=== PATIENT | male | born 1950 | race Caucasian/White ===

== ENCOUNTER 2020-04-09 23:55 | Emergency (ER) | payer MEDICARE, SELFPAY ==
[2020-04-09 23:56] VITALS: BP 138/75; PULSE 87; RESP 16; TEMP 37; O2SAT 98; BMI 24.3
[2020-04-10] VITALS (11 sets, daily range): BP systolic 105–148; BP diastolic 45–85; PULSE 60–88; RESP 16–20; TEMP 37.2; O2SAT 95–98; BMI 31.6
--- NOTE | 2020-04-10 00:19 | CT_ITS ---
PROCEDURE: CT ABDOMEN PELVIS WO CON CLINICAL INDICATION: right flank pain COMPARISON: No exams were available for comparison TECHNIQUE: Axial images obtained with sagittal and coronal reformats. All CT scans at the facility use one or more dose reduction, viz: automated exposure control, ma/kV adjustment per patient size (including targeted exams where dose is matched to indication, i.e. head), or iterative reconstruction technique. FINDINGS: Lung bases are unremarkable. Both adrenal glands are hypertrophic. The unenhanced liver,, pancreas, spleen, aorta, small and large bowel, area of the appendix, prostate, seminal vesicles, bladder, and the soft tissues are unremarkable. There is a remote fracture deformity of the superior left iliac crest.. The left kidney and ureter is unremarkable. There is dilatation of the right collecting system and ureter to the level of an L3 8.7 millimeter calculus with secondary moderate hydronephrosis. IMPRESSION: Obstructive 8.7 millimeter proximal right ureteral calculus with secondary hydronephrosis Dictated by: Carlton Lambert 04/10/2020 09:31 Electronically signed by Carlton Lambert in [facility] 04/10/2020 09:31
[2020-04-10 00:25] LABS: Basophils % 0.3 % (0.1-2.0); Eosinophils # 0.1 K/mm3 (0.0-0.4); Eosinophils % 0.8 % (0.1-12.0); Hematocrit 46.3 % (42.0-52.0); Hemoglobin 15.9 g/dL (14.1-18.0); Lymphocytes # 1.3 K/mm3 (0.7-4.5); Lymphocytes % 16.3 % (10-50); Mean Corpuscular HGB Conc 34.2 g/dL (31.8-35.4); Mean Corpuscular Hemoglobin 33.9 pg (27.0-31.2); Mean Corpuscular Volume 99.1 fl (80-94); Mean Platelet Volume 7.2 fl (7.4-10.4); Monocytes # 0.4 K/mm3 (0.1-1.0); Monocytes % 4.9 % (1.7-9.3); Neutrophils # 6.4 K/mm3 (1.8-7.8); Neutrophils % 77.7 % (37.0-80.0); Platelet Count 277 K/mm3 (142-424); Red Blood Count 4.67 M/mm3 (4.60-6.20); Red Cell Distribution Width 13.9 % (11.5-17.5); White Blood Count 8.3 K/mm3 (4.8-10.8)
[2020-04-10 00:29] LABS: Alanine Aminotransferase 70 U/L (12-78); Albumin Level 4.9 g/dl (3.5-5.0); Albumin/Globulin Ratio 1.7 (1.1-1.8); Alkaline Phosphatase 105 U/L (38-126); Anion Gap 12.6 mEq/L (5-15); Aspartate Amino Transferase 69 U/L (17-59); Bilirubin,Total 0.7 mg/dl (0.2-1.3); Blood Urea Nitrogen 23 mg/dl (9-20); Calcium 9.8 mg/dl (8.4-10.2); Carbon Dioxide 31 mmol/L (22.0-30.0); Chloride 96 mmol/L (98-107); Creatinine Clearance Estimated 64 mL/min (50-200); Estimated Glomerular Filt Rate 60 ml/min (>60); GFR (African American) 73 ML/MIN (>60); Globulin 2.9 g/dL (1.3-3.2); Glucose 133 mg/dl (74-100); Potassium 3.6 mmoL/L (3.5-5.1); Sodium 136 mmol/L (136-145); Total Protein,Serum 7.8 g/dl (6.3-8.2)
[2020-04-10 00:48] LABS: Microscopic, Urine URINE MICROSCOPIC (MICROSCOPIC)
[2020-04-10 00:49] LABS: Appearance,Urine CLEAR (Clear); Blood, Urine 3+ (Negative); Glucose,Urine (UA) Negative (Negative); Ketones,Urine 1+ (Negative); Leukocyte Esterase,Urine Negative (Negative); Nitrate,Urine Negative (Negative); PH,Urine 5.5 (5.0-8.5); Protein,Urine Negative (Negative); Specific Gravity, Urine 1.025 (1.005-1.030); Urobilinogen,Urine 0.2 EU/dl (0.2)
[2020-04-10 00:50] LABS: Bilirubin,Urine Negative (Negative); Color,Urine Dark Yellow (Yellow)
[2020-04-10 00:59] LABS: Bacteria,Urine 1+ /lpf; Mucus,Urine 1+ /lpf; RBC,Urine TNTC #/hpf (0-3)
--- NOTE | 2020-04-10 01:16 | PC.NURSE ---
paged Dr. Brown
--- NOTE | 2020-04-10 01:42 | PC.NURSE ---
calling st pratik jones md to speak with urology
--- NOTE | 2020-04-10 02:21 | PC.NURSE ---
on phone with dr solis at [facility]
--- NOTE | 2020-04-10 02:30 | HMH.EDGENADL ---
ED Disposition Clinical Impression: Nephrolithiasis Disposition: Xfer Short-Term Hosp Condition on Discharge: Good Instructions: DI for Acute Pain -- Adult Referrals: Damion Uriarte MD [Primary Care Provider] - - Critical Care Critical Care Time: No Attestation: On 04/09/20, the high probability of a clinically significant, sudden or life threatening deterioration of the following system(s) required my full and direct attention, intervention and personal management. The time I documented below is in addition to time spent performing reported procedures but includes the following listed in this critical care notation. Medical Decision Making - Medical Records Medical records reviewed: Yes: I reviewed the patient's medical records. - Taye Inquiry Pt receiving controlled substance: No Vital Signs: 04/09/20 23:56 04/10/20 00:56 04/10/20 02:30 Temperature 98.6 F Temperature Source Oral Pulse Rate [Left Radial] 87 70 68 Respiratory Rate 16 16 16 Blood Pressure [Right Arm] 138/75 148/83 H 141/72 H Blood Pressure Mean [Right Arm] 96 104 95 Blood Pressure Source [Right Arm] Automatic Cuff Automatic Cuff Automatic Cuff Blood Pressure Position [Right Arm] Sitting Sitting 02 Sat by Pulse Oximetry 98 96 97 Oxygen Delivery Method Room Air Room Air Room Air - Lab Data Lab results reviewed: Yes: I reviewed the patient's lab results. Lab Results 04/10/20 00:07: WBC 8.3, RBC 4.67, Hgb 15.9, Hct 46.3, MCV 99.1 H, MCH 33.9 H, MCHC 34.2, RDW 13.9, Plt Count 277, MPV 7.2 L, Neut % (Auto) 77.7, Lymph % (Auto) 16.3, [place] % (Auto) 4.9, Eos % (Auto) 0.8, Baso % (Auto) 0.3, Neut # (Auto) 6.4, Lymph # (Auto) 1.3, [place] # (Auto) 0.4, Eos # (Auto) 0.1, Baso # (Auto) 0.0 04/10/20 00:07: Sodium 136, Potassium 3.6, Chloride 96 L, Carbon Dioxide 31 H, Anion Gap 12.6, BUN 23 H, Creatinine 1.20, Estimated Creat Clear 64, Estimated GFR 60, Est GFR ( Amer) 73, Glucose 133 H, Calcium 9.8, Total Bilirubin 0.7, AST 69 H, ALT 70, Alkaline Phosphatase 105, Total Protein 7.8, Albumin 4.9, Globulin 2.9, Albumin/Globulin Ratio 1.7 04/10/20 00:42: Urine Color Dark yellow, Urine Appearance Clear, Urine pH 5.5, Ur Specific [place] 1.025, Urine Protein Negative, Urine Glucose (UA) Negative, Urine Ketones 1+, Urine Blood 3+, Urine Nitrate Negative, Urine Bilirubin Negative, Urine Urobilinogen 0.2, Ur Leukocyte Esterase Negative, Urine RBC Tntc, Urine WBC 3-5, Ur Squamous Epith Cells 3-5, Urine Bacteria 1+, Urine Mucus 1+ Result diagrams: 04/10/20 00:07 04/10/20 00:07 Orders (Tests/Meds): ED MEDICATIONS Generic Name Dose Route Start Last Admin Trade Name Rashid PRN Reason Stop Dose Admin Sodium Chloride 1,000 mls @ 999 mls/hr 04/10/20 00:30 04/10/20 00:26 Sod Chlor 0.9% 1000ml Bag IV 04/10/20 01:30 999 mls/hr .Q1H1M HEAVENLY Administration Sodium Chloride 1,000 mls @ 999 mls/hr 04/10/20 02:00 04/10/20 01:59 Sod Chlor 0.9% 1000ml Bag IV 04/10/20 03:00 999 mls/hr .Q1H1M HEAVENLY Administration Discontinued Medications Generic Name Dose Route Start Last Admin Trade Name Rashid PRN Reason Stop Dose Admin Amlodipine Besylate 10 mg 04/10/20 01:20 04/10/20 01:56 Norvasc 10mg Tablet PO 04/10/20 01:21 10 mg ONCE ONE Administration Hyoscyamine 0.25 mg 04/10/20 01:21 04/10/20 01:56 Levsin 0.125mg Tablet PO 04/10/20 01:22 0.25 mg ONCE ONE Administration Ketorolac Tromethamine 30 mg 04/10/20 00:18 04/10/20 00:25 Toradol 30mg/Ml Vial IV 04/10/20 00:19 30 mg ONCE ONE Administration Morphine Sulfate 4 mg 04/10/20 01:45 04/10/20 01:56 Morphine 4mg/Ml Syringe IV 04/10/20 01:46 4 mg ONCE ONE Administration Ondansetron HCl 4 mg 04/10/20 00:18 04/10/20 00:25 Zofran 4mg/2ml Vial IV 04/10/20 00:19 4 mg ONCE ONE Administration Tamsulosin HCl 0.8 mg 04/10/20 01:21 04/10/20 01:58 Flomax 0.4mg Capsule PO 04/10/20 01:22 0.4 mg ONCE ONE Administration ORDERS Category D
--- NOTE | 2020-04-10 03:01 | PC.NURSE ---
called lab to inform of covid test order.
--- NOTE | 2020-04-10 04:01 | PC.NURSE ---
this nurse spoke with kael duenas at [facility] who stated the pts bed assignment will be delayed until around shift change now. this nurse informed pt of delay. he asked this nurse to not call his to update her at the moment. he doesnt want to wake her up since he isnt going anywhere yet.
--- NOTE | 2020-04-10 04:43 | PC.NURSE ---
obtained bed from the floor for patient's comfort. pt repositioned and will offer breakfast at time.
--- NOTE | 2020-04-10 05:37 | PC.NURSE ---
spoke with pts daughter and updated her on pt condition and plan.
--- NOTE | 2020-04-10 06:19 | PC.NURSE ---
kael from [place]. called to check on pt. no update on a bed assignment at this time
--- NOTE | 2020-04-10 08:28 | PC.NURSE ---
SPOKE WITH [facility] PT IS GOING TO HAVE SURGERY THIS MORNING , FIXING TO CALL REPORT
--- NOTE | 2020-04-10 08:40 | PC.NURSE ---
Attempted to give report to [facility], stated to call back in 30 mins for report that they were not ready to take it yet.
--- NOTE | 2020-04-10 09:24 | PC.NURSE ---
Approval obtained from GALO Major, CNO for patient to have in-house COVID-19 testing prior to transfer.
[2020-04-10 09:39] LABS: Adenovirus,PCR Not Detected (NotDetected); Bordetella Pertussis Not Detected (NotDetected); Chlamydophila Pneumoniae, PCR Not Detected (NotDetected); Coronavirus 19, PCR Not Detected (NotDetected); Coronavirus 229E Not Detected (NotDetected); Coronavirus NL63 Not Detected (NotDetected); Coronavirus OC43 Not Detected (NotDetected); Coronovirus HKU1,PCR Not Detected (NotDetected); Human Metapneumovirus Not Detected (NotDetected); Influenza A, PCR Not Detected (NotDetected); Influenza AH1, 2009 Not Detected (NotDetected); Influenza AH1, PCR Not Detected (NotDetected); Influenza AH3,PCR Not Detected (NotDetected); Influenza B, PCR Not Detected (NotDetected); Mycoplasma Pneumoniae, PCR Not Detected (NotDected); Parainfluenza 1, PCR Not Detected (NotDetected); Parainfluenza 2, PCR Not Detected (NotDetected); Parainfluenza 3, PCR Not Detected (NotDetected); Parainfluenza 4, PCR Not Detected (NotDetected); Respiratory Syncytial Virus Not Detected (NotDetected); Rhinovirus/Enterovirus Not Detected (NotDetected)
[2020-04-11 15:13] LABS: Covid-19 Nasal PCR Sendout Lex NOT DETECTED
== END 2020-04-10 10:08 | disposition short-term general hospital (02) ==
PROVIDERS: Emergency Provider Family Medicine; PCP Family Medicine
DX: N20.0 Calculus of kidney (principal); F41.8 Other specified anxiety disorders; F17.210 Nicotine dependence, cigarettes, uncomplicated
CPT/HCPCS: 74176; 80053; 81001; 85025; 87581; 87633; 87798; 96365; 96367; 96375; 99285; J2405; U0004

== ENCOUNTER 2023-10-17 13:47 | Emergency (ER) | payer MEDICARE, SELFPAY ==
[2023-10-17 13:48] VITALS: BP 147/73; PULSE 86; RESP 18; TEMP 36.9; O2SAT 97; BMI 22.5
--- NOTE | 2023-10-17 13:59 | XR_ITS ---
PROCEDURE INFORMATION: Exam: XR Chest Exam date and time: 10/17/2023 2:23 PM Age: 73 years old Clinical indication: Smoker's cough; Additional info: Cough 1-2 weeks TECHNIQUE: Imaging protocol: Radiologic exam of the chest. Views: 2 views. COMPARISON: CT ABDOMEN PELVIS WO CON 04/10/2020 12:34 AM FINDINGS: Lungs: Large right upper lobe lung mass with adjacent consolidation highly concerning for bronchogenic malignancy for which follow-up CT chest recommended for further assessment. Pleural spaces: Unremarkable. No pleural effusion. No pneumothorax. Heart/Mediastinum: Unremarkable. No cardiomegaly. Bones/joints: Unremarkable for age. IMPRESSION: Large right upper lobe lung mass with adjacent consolidation that may be secondary to postobstructive atelectasis for which follow-up CT chest with contrast recommended for further assessment.
[2023-10-17 14:00] VITALS: BP 119/65; PULSE 80; RESP 18; O2SAT 96
[2023-10-17 14:30] VITALS: BP 107/63; PULSE 82; RESP 18; O2SAT 96
[2023-10-17] MEDS: DEXAMETHASONE 4MG TABLET 10 MG PO (14:50)
[2023-10-17 15:00] VITALS: BP 115/67; PULSE 77; RESP 18; O2SAT 96
--- NOTE | 2023-10-17 15:13 | ED_ITS ---
Discharge Plan Disposition Patient Disposition: Home, Self-Care Prescriptions Prescriptions: New cefdinir 300 mg capsule 300 mg PO BID 10 Days Qty: 20 0RF No Action sertraline 100 MG tablet 100 mg PO DAILY tamsulosin 0.4 MG capsule 0.4 mg PO DAILY finasteride 5 MG tablet 5 mg PO DAILY diazepam 5 MG tablet 5 mg PO TID rosuvastatin 10 MG tablet 10 mg PO 10 hydrocodone-acetaminophen 1 EACH tablet 1 each PO NEEDED PRN (Reason: back pain) Referrals Follow up/Referrals: Vicente Mas DO [Primary Care Provider] - See instructions Activity Restrictions/Add. Instructions Additional Instructions/Restrictions: Follow-up with your family doctor regarding this visit to the emergency department. Take antibiotic twice daily for 10 days. Be sure to talk to your family doctor about pneumonia and concern for possible mass causing the pneumonia. Call your family doctor to establish care for this visit to the emergency department and schedule follow-up within 48 hours to ensure improvement. If you have any worsening of your condition or any other concerning signs or symptoms, return to the emergency department or your primary care doctor for further evaluation. Clinical Impressions Clinical Impression: Lung mass Pneumonia Qualifiers: Pneumonia type: due to unspecified organism Laterality: right Lung location: upper lobe of lung Qualified Code(s): J18.9 - Pneumonia, unspecified organism Discharge ED Provider: Kimani Hunter General Adult HPI General Chief complaint: Upper Respiratory Infection Stated complaint: cough, congestion, pain in right lung area Time Seen by Provider: 10/17/23 14:06 Mode of Arrival: Ambulatory Limitations: No Limitations Description of Symptoms (Recalled from ER Triage Doc. by RN): PT REPORTS COUGH AND CONGESTION X 1-2 WEEKS. STATES I THINK I HAVE PNEUMONIA History of Present Illness HPI narrative: 73-year-old with significant medical history for [id number] smoking presenting with cough and generalized weakness. He thinks he has pneumonia after searching his symptoms online. Cough is rattling, but not productive of any sputum. Has been having symptoms of cough and congestion for about 2 weeks at this point and states that he is feeling like he is getting worse now. Has not taken anything for the symptoms Related Data Home Medications Medication Instructions Recorded Confirmed diazepam 5 mg tablet 5 mg PO TID Anxiety 04/10/20 04/10/20 finasteride 5 mg tablet 5 mg PO DAILY hyperlipidemia 04/10/20 04/10/20 hydrocodone 5 mg-acetaminophen 325 1 each PO NEEDED PRN back pain 04/10/20 04/10/20 mg tablet rosuvastatin 10 mg tablet 10 mg PO 10 hyperlipidemia 04/10/20 04/10/20 sertraline 100 mg tablet 100 mg PO DAILY depression 04/10/20 04/10/20 tamsulosin 0.4 mg capsule 0.4 mg PO DAILY prostate 04/10/20 04/10/20 Previous Rx's Medication Instructions Recorded cefdinir 300 mg capsule 300 mg PO BID 10 days #20 caps 10/17/23 Allergies Allergy/AdvReac Type Severity Reaction Status Date / Time YELLOW PAIN PILL (UNSURE Allergy Mild Uncoded 10/04/17 14:22 NAME) [facility] Disclaimer: The information contained in this section may have been updated after the patient was seen, as this information can be updated by other users. Social History Smoking Status: Current every day smoker alcohol intake: never current occupational status: retired Travel in the last 8 weeks: None ROS Obtained: Yes All systems reviewed & no additional complaints except as documented Physical Exam General General appearance: alert and in no apparent distress Head Head exam: atraumatic and normocephalic Eye Eye exam: Present normal appearance, PERRL and EOMI ENT ENT exam: Present mucous membranes moist Neck Neck exam: Present normal inspection, full ROM and trachea midline Respiratory Respiratory exam: Absent respiratory distress, wheezes, stridor, accessory muscle use or prolonged expiratory phase Cardiovascular Cardiovascular exam: Present normal rhythm Abdominal Exam Abdominal exam: Present soft; Absent distention, tenderness, guarding, rebound or rigidity Extremities Exam Extremities exam: Absent edema Neurological Exam Neurological exam: Present alert, oriented X3, CN II-XII intact and normal gait; Absent motor sensory deficit Skin Skin exam: Present warm and dry; Absent diaphoresis or erythema Medical Decision Making Medical Records Medical records reviewed: Yes I reviewed the patient's medical records. Taye Inquiry Pt receiving controlled substance: No Taye was queried for this patient: No Vital Signs: 10/17/23 13:48 10/17/23 14:00 10/17/23 14:30 Temperature 98.4 F Temperature Source Oral Pulse Rate 80 82 Pulse Rate [Radial] 86 Respiratory Rate 18 18 18 Blood Pressure 119/65 107/63 L Blood Pressure [Right Arm] 147/73 H Blood Pressure Mean 83 78 Blood Pressure Mean [Right Arm] 97 Blood Pressure Source [Right Arm] Automatic Cuff Blood Pressure Position [Right Arm] Sitting 02 Sat by Pulse Oximetry 97 96 96 Oxygen Delivery Method Room Air 10/17/23 15:00 Temperature Temperature Source Pulse Rate 77 Pulse Rate [Radial] Respiratory Rate 18 Blood Pressure 115/67 Blood Pressure [Right Arm] Blood Pressure Mean 83 Blood Pressure Mean [Right Arm] Blood Pressure Source [Right Arm] Blood Pressure Position [Right Arm] 02 Sat by Pulse Oximetry 96 Oxygen Delivery Method Orders (Tests/Meds): ED MEDICATIONS Generic Name Dose Route Start Last Admin Trade Name Freq PRN Reason Stop Dose Admin Cefdinir 300 mg 10/17/23 15:44 Cefdinir 300mg Capsule PO 10/17/23 15:45 ONCE ONE Discontinued Medications Generic Name Dose Route Start Last Admin Trade Name Freq PRN Reason Stop Dose Admin Dexamethasone 10 mg 10/17/23 14:31 10/17/23 14:50 Dexamethasone 4mg Tablet PO 10/17/23 14:32 10 mg ONCE ONE Administration ORDERS Category Date Time Status CXR 2 view (NOT portable) [XR chest 2V] Stat Exams 10/17/23 13:59 Completed Medical Decision Narrative: 73-year-old with significant medical history for [id number] smoking presenting with cough and generalized weakness. He thinks he has pneumonia after searching his symptoms online. Cough is rattling, but not productive of any sputum, but he did produce a small penny of blood today, 10/17. No fevers or chills or any other sick symptoms. Has been having symptoms of cough and congestion for about 2 weeks at this point and states that he is feeling like he is getting worse now. Has not taken anything for the symptom. To be noted that patient still currently continues to smoke which complicates care and current health status. History was obtained via conversation with patient. On arrival, patient hemodynamically stable, alert, oriented x4, appropriate, GCS 15, moving all extremities spontaneously, pupils equal and reactive to light. Full physical exam performed and significant for lungs clear to auscultation bilaterally, but patient is intermittently coughing and is nonproductive. Cardiac exam within normal limits. Differential includes bronchitis, pneumonia, malignancy, pneumothorax, among others. Patient was given Decadron p.o. for symptomatic management and correction of underlying abnormalities. Chest x-ray ordered. Patient has dense consolidation of right upper lobe. He was given Augmentin. No evidence of midline shift. Appears to be related to a neighboring mass. On reevaluation, patient resting comfortably bed. This most likely represents pneumonia. Could represent mucous plugging given large, dense consolidation and acuity of symptoms, but antibiotics administered here and because patient saturating appropriately, nontachypneic, nontachycardic, normotensive was deemed appropriate for outpatient management. Because patient at baseline without signs or symptoms of clinical decompensation, deemed appropriate for discharge. Results were relayed to patient and family who voiced understanding and were agreeable to outpatient management and follow up. At the time of discharge the patient was hemodynamically stable, tolerating PO, and mobilizing appropriately. Return precautions given Critical Care Critical Care Time Critical Care Time: No
[2023-10-17] MEDS: CEFDINIR 300MG CAPSULE 300 MG PO (15:57)
[2023-10-17 16:01] VITALS: BP 129/78; PULSE 81; RESP 20; TEMP 36.9; O2SAT 97
== END 2023-10-17 16:03 | disposition home or self-care (01) ==
PROVIDERS: Emergency Provider Emergency Medicine; PCP Internal Medicine
DX: J18.9 Pneumonia, unspecified organism (principal); R53.1 Weakness; F17.210 Nicotine dependence, cigarettes, uncomplicated
CPT/HCPCS: 71046; 99283

== ENCOUNTER 2023-11-27 15:19 | Emergency (ER) | payer MEDICARE, SELFPAY ==
[2023-11-27] VITALS (8 sets, daily range): BP systolic 128–159; BP diastolic 66–88; PULSE 78–91; RESP 18–20; TEMP 36.9; O2SAT 94–97; BMI 22.9
--- NOTE | 2023-11-27 15:49 | ED_ITS ---
Discharge Plan Disposition Patient Disposition: Home, Self-Care Condition: Fair Prescriptions Prescriptions: New oxycodone 5 mg tablet 5 mg PO Q8H PRN (Reason: severe pain (scale score 7-10)) Qty: 12 0RF No Action sertraline 100 MG tablet 100 mg PO DAILY tamsulosin 0.4 MG capsule 0.4 mg PO DAILY finasteride 5 MG tablet 5 mg PO DAILY diazepam 5 MG tablet 5 mg PO TID rosuvastatin 10 MG tablet 10 mg PO 10 hydrocodone-acetaminophen 1 EACH tablet 1 each PO NEEDED PRN (Reason: back pain) cefdinir 300 mg capsule 300 mg PO BID 10 Days Qty: 20 0RF Referrals Follow up/Referrals: Vicente Mas DO [Primary Care Provider] - See instructions Dell Villarreal MD [Staff Physician] - See instructions (Patient has a right u pper lobe mass with right upper lobe bronchus and mass effect on the right pulmonary artery) Activity Restrictions/Add. Instructions Additional Instructions/Restrictions: Patient to call and make appointments with Dr. Villarreal of hematology oncology tomorrow. Patient personally notified that he likely has a malignant lung mass that needs further evaluation. Please take your medications as prescribed Clinical Impressions Clinical Impression: Lung mass Discharge ED Provider: Rigoberto Moody General Adult HPI <ARABELLA Romo - Last Filed: 11/27/23 18:12> General Chief complaint: Shortness of Breath/Dyspnea Stated complaint: SOA, wheezing ,weak Time Seen by Provider: 11/27/23 15:49 Mode of Arrival: Ambulatory Source of Information: Patient Limitations: No Limitations Description of Symptoms (Recalled from ER Triage Doc. by RN): Patient reports he was diagnosed with pneumonia 1 month ago and completed course of antibiotics felt better for a little bit but started feeling bad a week ago with cough, shortness of breath, ear pain and headache. History of Present Illness HPI narrative: Patient presents for evaluation initially of pneumonia . Patient has past medical history of ongoing tobaccoism of approximately 1 pack/day. Patient was seen in October 17, 2023 and diagnosed with a right middle lobe pneumonia. He was prescribed antibiotics and steroids and discharged home. Patient reports only minimal improvement and returns with a 2-week history of worsening right- sided chest pain when lying on his right side, shortness of breath and nonproductive cough. He denies fever chills hemoptysis hematochezia melena n ausea vomiting diarrhea.Patient is on no controlled substances currently. Patient has been on diazepam in the past but has since self DC'd over a year ago. Patient denies unintentional weight loss, night sweats. Related Data Home Medications Medication Instructions Recorded Confirmed diazepam 5 mg tablet 5 mg PO TID Anxiety 04/10/20 04/10/20 finasteride 5 mg tablet 5 mg PO DAILY hyperlipidemia 04/10/20 04/10/20 hydrocodone 5 mg-acetaminophen 325 1 each PO NEEDED PRN back pain 04/10/20 04/10/20 mg tablet rosuvastatin 10 mg tablet 10 mg PO 10 hyperlipidemia 04/10/20 04/10/20 sertraline 100 mg tablet 100 mg PO DAILY depression 04/10/20 04/10/20 tamsulosin 0.4 mg capsule 0.4 mg PO DAILY prostate 04/10/20 04/10/20 Previous Rx's Medication Instructions Recorded cefdinir 300 mg capsule 300 mg PO BID 10 days #20 caps 10/17/23 oxycodone 5 mg tablet 5 mg PO Q8H PRN severe pain (scale 11/27/23 score 7-10) #12 tabs Allergies Allergy/AdvReac Type Severity Reaction Status Date / Time YELLOW PAIN PILL (UNSURE Allergy Mild Uncoded 10/04/17 14:22 NAME) [facility] <ARABELLA Romo - Last Filed: 11/27/23 18:12> [facility] Disclaimer: The information contained in this section may have been updated after the patient was seen, as this information can be updated by other users. Social History Smoking Status: Current every day smoker alcohol intake: never current occupational status: retired Travel in the last 8 weeks: None <ARABELLA Romo - Last Filed: 11/27/23 18:12> ROS Obtained: Yes Systems reviewed as appropriate & no additional complaints except as documented Physical Exam <ARABELLA Romo - Last Filed: 11/27/23 18:12> Narrative Physical exam: Patient is a well-nourished well-developed 73-year-old gentleman who otherwise is in no acute distress. General General appearance: alert and in no apparent distress Head Head exam: atraumatic and normal inspection Eye Eye exam: Present normal appearance, EOMI and other (Bilateral pinpoint pupils) ENT ENT exam: Present normal exam, normal oropharynx and mucous membranes moist Neck Neck exam: Present normal inspection, full ROM and trachea midline; Absent lymphadenopathy Chest Chest inspection: Present normal inspection and symmetric chest wall rise Respiratory Respiratory exam: Present other (Patient has inspiratory and expiratory rhonchi primarily in the right middle lobe. Air entry in the right middle lobe is diminished. The remainder of the lung lindesy are clear to auscultation); Absent accessory muscle use Cardiovascular Cardiovascular exam: Present regular rate, normal rhythm, normal heart sounds, +S1 and +S2 Abdominal Exam Abdominal exam: Present soft and normal bowel sounds; Absent tenderness, guarding or rebound Extremities Exam Extremities exam: Present normal inspection and full ROM Neurological Exam Neurological exam: Present alert, oriented X3 and CN II-XII intact Psychiatric Psychiatric exam: Present normal affect and normal mood Skin Skin exam: Present warm, dry and normal color Lymphatic Lymphatic Findings: no adenopathy Medical Decision Making <ARABELLA Romo - Last Filed: 11/27/23 18:12> Medical Records Medical records reviewed: Yes I reviewed the patient's medical records. Taye Inquiry Pt receiving controlled substance: No Vital Signs: 11/27/23 15:20 11/27/23 15:30 11/27/23 16:00 Temperature 98.5 F Temperature Source Oral Pulse Rate 83 80 Pulse Rate [Right] 89 Respiratory Rate 20 Blood Pressure 141/68 H 142/67 H Blood Pressure [Right Arm] 159/78 H Blood Pressure Mean [Right Arm] 105 Blood Pressure Source [Right Arm] Automatic Cuff 02 Sat by Pulse Oximetry 96 96 94 L Oxygen Delivery Method Room Air Room Air Room Air 11/27/23 16:30 11/27/23 17:00 11/27/23 17:30 Temperature Temperature Source Pulse Rate 85 78 91 H Pulse Rate [Right] Respiratory Rate Blood Pressure 141/71 H 131/66 148/85 H Blood Pressure [Right Arm] Blood Pressure Mean [Right Arm] Blood Pressure Source [Right Arm] 02 Sat by Pulse Oximetry 97 94 L 95 Oxygen Delivery Method Room Air Room Air Room Air 11/27/23 18:00 Temperature Temperature Source Pulse Rate 85 Pulse Rate [Right] Respiratory Rate Blood Pressure 128/75 Blood Pressure [Right Arm] Blood Pressure Mean [Right Arm] Blood Pressure Source [Right Arm] 02 Sat by Pulse Oximetry 95 Oxygen Delivery Method Room Air Lab Data Lab results reviewed: Yes I reviewed the patient's lab results. Lab Results 11/27/23 16:10: SARS-CoV-2 (PCR) Not detected, Influenza A Untype (PCR) Not detected, Influenza Type B (PCR) Not detected 11/27/23 16:30: WBC 8.3, RBC 4.58 L, Hgb 12.6 L, Hct 40.5 L, MCV 88.4, MCH 27.5, MCHC 31.2 L, RDW 17.2, Plt Count 497 H, MPV 7.6, Neut % (Auto) 81.3 H, Lymph % (Auto) 12.2, Ada % (Auto) 5.4, Eos % (Auto) 0.9, Baso % (Auto) 0.2, Neut # (Auto) 6.7, Lymph # (Auto) 1.0, Ada # (Auto) 0.5, Eos # (Auto) 0.1, Baso # (Auto) 0.0, Sodium 140, Potassium 3.6, Chloride 105, Carbon Dioxide 29, Anion Gap 9.6, BUN 13, Creatinine 1.00, Estimated Creat Clear 69, Estimated GFR 73, Est GFR ( Amer) 89, Glucose 103 H, Calcium 9.1, Total Bilirubin 0.3, AST 33, ALT 21, Alkaline Phosphatase 169 H, Troponin I < 0.01, Total Protein 7.8, Albumin 4.1, Globulin 3.7 H, Albumin/Globulin Ratio 1.1 11/27/23 16:30 11/27/23 16:30 Orders (Tests/Meds): ED MEDICATIONS Generic Name Dose Route Start Last Admin Trade Name Freq PRN Reason Stop Dose Admin Ceftriaxone Sodium 1 gm/ 50 mls @ 100 mls/hr 11/27/23 17:00 11/27/23 17:51 Sodium Chloride IV 12/07/23 16:59 100 mls/hr Q24H HEAVENLY Administration Azithromycin 500 mg/ Sodium 250 mls @ 250 mls/hr 11/27/23 17:00 11/27/23 18:12 Chloride IV 12/07/23 16:59 Not Given Q24H HEAVENLY Oxycodone HCl 5 mg 11/27/23 18:11 Oxycodone 5mg Immediate Release Tablet PO 12/27/23 18:10 Q4HP PRN Severe Pain (7-10) Discontinued Medications Generic Name Dose Route Start Last Admin Trade Name Rashid PRN Reason Stop Dose Admin Acetaminophen 1,000 mg 11/27/23 16:47 11/27/23 17:22 Acetaminophen 1,000mg/100ml Vial IV 11/27/23 16:48 1,000 mg ONCE ONE Administration Iopamidol 80 ml 11/27/23 17:17 11/27/23 17:18 Iopamidol-370 (76%);100ml Bottle IV 11/27/23 17:18 80 ml ONCE ONE Administration Morphine Sulfate 4 mg 11/27/23 16:47 11/27/23 17:22 Morphine 4mg/Ml Syringe IV 11/27/23 16:48 4 mg ONCE ONE Administration Ondansetron HCl 4 mg 11/27/23 17:23 11/27/23 17:26 Ondansetron 4mg/2ml Vial IV 11/27/23 17:24 4 mg ONCE ONE Administration Sodium Chloride 10 ml 11/27/23 17:17 11/27/23 17:18 Sodium Chloride 0.9% 10ml Syr (Rad Only) IV 11/27/23 17:18 10 ml ONCE ONE Administration Sodium Chloride 50 ml 11/27/23 17:17 11/27/23 17:18 0.9 % Sodium Chloride 50 Ml Vial IV 11/27/23 17:18 50 ml ONCE ONE Administration ORDERS Category Date Time Status CT angio chest PE protocol Stat Cat Scan 11/27/23 16:[address] head/brain wo con Stat Cat Scan 11/27/23 16:47 Completed Chest XR -- portable [XR chest portable] Stat Exams 11/27/23 15:59 Completed CBC w/Auto Diff [Complete Blood Count Auto Diff] Stat Lab 11/27/23 16:30 Completed CMP [Comprehensive Metabolic Panel] Stat Lab 11/27/23 16:30 Completed Rapid PCR Covid and Flu A/B Stat Lab 11/27/23 16:10 Completed Trop I [Troponin I] Stat Lab 11/27/23 16:30 Completed EKG Request [ECG Request] Stat Y 11/27/23 16:17 Ordered Medical Decision Narrative: In summary patient is a 73-year-old male who presents to the emergency department for evaluation of initially cough and right-sided chest pain. Patient is hemodynamically stable upon arrival, and afebrile. Physical exam shows diminished breath sounds with rhonchorous breath sounds in the right middle lobe lindsey additionally pupillary exam shows pinpoint pupils bilaterally. Differential diagnosis includes right middle lobe pneumonia versus malignant neoplastic disease. Initial workup will be conducted with hematologic labs plain film chest x-ray CTA PE protocol CT of the head respiratory swabs. Initial interventions include acetaminophen and opiate analgesia. Initial workup reviewed by me shows a normal white count with no left shift and CMP significant for elevated alk phos manage laboratory vesication's are nonactionable. Mild unofficial interpretation of CT scan head without contrast shows no evidence of mass. My unofficial interpretation of the CTA PE protocol shows an obstructing mass in the right middle lobe along with likely tree-in-bud in the anterior right lower lobe along with nodular changes in the upper and lower lobes. No definitive mass noted although it is possible that the entire right middle lobe could be either postobstructive or mass. Comparison from plain film chest x-ray done in October of this year shows continued prominence of opacification of the right middle lobe along with slightly worsening peripheral surrounding disease. Discussed patient management with pulmonology on-call. Upon repeat evaluation had resolution of headache but was not breathing any better or worse. Given this patient is appropriate for discharge home with instructions to contact the hematology oncology clinic tomorrow for appointment <Rigoberto Moody MD - Last Filed: 11/27/23 18:18> Vital Signs: 11/27/23 15:20 11/27/23 15:30 11/27/23 16:00 Temperature 98.5 F Temperature Source Oral Pulse Rate 83 80 Pulse Rate [Right] 89 Respiratory Rate 20 Blood Pressure 141/68 H 142/67 H Blood Pressure [Right Arm] 159/78 H Blood Pressure Mean [Right Arm] 105 Blood Pressure Source [Right Arm] Automatic Cuff 02 Sat by Pulse Oximetry 96 96 94 L Oxygen Delivery Method Room Air Room Air Room Air 11/27/23 16:30 11/27/23 17:00 11/27/23 17:30 Temperature Temperature Source Pulse Rate 85 78 91 H Pulse Rate [Right] Respiratory Rate Blood Pressure 141/71 H 131/66 148/85 H Blood Pressure [Right Arm] Blood Pressure Mean [Right Arm] Blood Pressure Source [Right Arm] 02 Sat by Pulse Oximetry 97 94 L 95 Oxygen Delivery Method Room Air Room Air Room Air 11/27/23 18:00 Temperature Temperature Source Pulse Rate 85 Pulse Rate [Right] Respiratory Rate Blood Pressure 128/75 Blood Pressure [Right Arm] Blood Pressure Mean [Right Arm] Blood Pressure Source [Right Arm] 02 Sat by Pulse Oximetry 95 Oxygen Delivery Method Room Air Lab Data Lab Results 11/27/23 16:10: SARS-CoV-2 (PCR) Not detected, Influenza A Untype (PCR) Not detected, Influenza Type B (PCR) Not detected 11/27/23 16:30: WBC 8.3, RBC 4.58 L, Hgb 12.6 L, Hct 40.5 L, MCV 88.4, MCH 27.5, MCHC 31.2 L, RDW 17.2, Plt Count 497 H, MPV 7.6, Neut % (Auto) 81.3 H, Lymph % (Auto) 12.2, Ada % (Auto) 5.4, Eos % (Auto) 0.9, Baso % (Auto) 0.2, Neut # (Auto) 6.7, Lymph # (Auto) 1.0, Ada # (Auto) 0.5, Eos # (Auto) 0.1, Baso # (Auto) 0.0, Sodium 140, Potassium 3.6, Chloride 105, Carbon Dioxide 29, Anion Gap 9.6, BUN 13, Creatinine 1.00, Estimated Creat Clear 69, Estimated GFR 73, Est GFR ( Amer) 89, Glucose 103 H, Calcium 9.1, Total Bilirubin 0.3, AST 33, ALT 21, Alkaline Phosphatase 169 H, Troponin I < 0.01, Total Protein 7.8, Albumin 4.1, Globulin 3.7 H, Albumin/Globulin Ratio 1.1 Orders (Tests/Meds): ED MEDICATIONS Generic Name Dose Route Start Last Admin Trade Name Freq PRN Reason Stop Dose Admin Ceftriaxone Sodium 1 gm/ 50 mls @ 100 mls/hr 11/27/23 17:00 11/27/23 17:51 Sodium Chloride IV 12/07/23 16:59 100 mls/hr Q24H HEAVENLY Administration Azithromycin 500 mg/ Sodium 250 mls @ 250 mls/hr 11/27/23 17:00 11/27/23 18:12 Chloride IV 12/07/23 16:59 Not Given Q24H HEAVENLY Oxycodone HCl 5 mg 11/27/23 18:11 Oxycodone 5mg Immediate Release Tablet PO 12/27/23 18:10 Q4HP PRN Severe Pain (7-10) Discontinued Medications Generic Name Dose Route Start Last Admin Trade Name Rashid PRN Reason Stop Dose Admin Acetaminophen 1,000 mg 11/27/23 16:47 11/27/23 17:22 Acetaminophen 1,000mg/100ml Vial IV 11/27/23 16:48 1,000 mg ONCE ONE Administration Iopamidol 80 ml 11/27/23 17:17 11/27/23 17:18 Iopamidol-370 (76%);100ml Bottle IV 11/27/23 17:18 80 ml ONCE ONE Administration Morphine Sulfate 4 mg 11/27/23 16:47 11/27/23 17:22 Morphine 4mg/Ml Syringe IV 11/27/23 16:48 4 mg ONCE ONE Administration Ondansetron HCl 4 mg 11/27/23 17:23 11/27/23 17:26 Ondansetron 4mg/2ml Vial IV 11/27/23 17:24 4 mg ONCE ONE Administration Sodium Chloride 10 ml 11/27/23 17:17 11/27/23 17:18 Sodium Chloride 0.9% 10ml Syr (Rad Only) IV 11/27/23 17:18 10 ml ONCE ONE Administration Sodium Chloride 50 ml 11/27/23 17:17 11/27/23 17:18 0.9 % Sodium Chloride 50 Ml Vial IV 11/27/23 17:18 50 ml ONCE ONE Administration ORDERS Category Date Time Status CT angio chest PE protocol Stat Cat Scan 11/27/23 16:[address] head/brain wo con Stat Cat Scan 11/27/23 16:47 Completed Chest XR -- portable [XR chest portable] Stat Exams 11/27/23 15:59 Completed CBC w/Auto Diff [Complete Blood Count Auto Diff] Stat Lab 11/27/23 16:30 Completed CMP [Comprehensive Metabolic Panel] Stat Lab 11/27/23 16:30 Completed Rapid PCR Covid and Flu A/B Stat Lab 11/27/23 16:10 Completed Trop I [Troponin I] Stat Lab 11/27/23 16:30 Completed EKG Request [ECG Request] Stat Y 11/27/23 16:17 Ordered ECG Data Tracing #1: Independently interpreted by me, rate is 82, rhythm is regular, no ST elevation in anatomical contiguous leads, QTc 399 Medical Decision Narrative: In summary patient is a 73-year-old male who presents to the emergency department for evaluation of initially cough and right-sided chest pain. Patient is hemodynamically stable upon arrival, and afebrile. Physical exam shows diminished breath sounds with rhonchorous breath sounds in the right middle lobe lindsey additionally pupillary exam shows pinpoint pupils bilaterally. Differential diagnosis includes right middle lobe pneumonia versus malignant neoplastic disease. Initial workup will be conducted with hematologic labs plain film chest x-ray CTA PE protocol CT of the head respiratory swabs. Initial interventions include acetaminophen and opiate analgesia. Initial workup reviewed by me shows a normal white count with no left shift and CMP significant for elevated alk phos manage laboratory vesication's are nonactionable. Mild unofficial interpretation of CT scan head without contrast shows no evidence of mass. My unofficial interpretation of the CTA PE protocol shows an obstructing mass in the right middle lobe along with likely tree-in-bud in the anterior right lower lobe along with nodular changes in the upper and lower lobes. No definitive mass noted although it is possible that the entire right middle lobe could be either postobstructive or mass. Comparison from plain film chest x-ray done in October of this year shows continued prominence of opacification of the right middle lobe along with slightly worsening peripheral surrounding disease. Discussed patient management with pulmonology on-call. Upon repeat evaluation had resolution of headache but was not breathing any better or worse. Given this patient is appropriate for discharge home with instructions to contact the hematology oncology clinic tomorrow for appointment. I was consulted by the ANNE, and we discussed the complexity of the problems being addressed. I approved the treatment and management plan for this patient's care in the emergency department, thus performing a substantive portion of the medical decision making. Rigoberto Moody MD Critical Care <ARABELLA Romo - Last Filed: 11/27/23 18:12> Critical Care Time Critical Care Time: No
--- NOTE | 2023-11-27 15:59 | XR_ITS ---
PROCEDURE INFORMATION: Exam: XR Chest Exam date and time: 11/27/2023 4:02 PM Age: 73 years old Clinical indication: Cough; Patient HX: Patient state's he has pneumonia. ; Additional info: Cough wheezing TECHNIQUE: Imaging protocol: Radiologic exam of the chest. Views: 1 view. COMPARISON: CR XR CHEST 2V 10/17/2023 2:23 PM FINDINGS: Lungs: Unchanged right mid to upper lung field mass measuring 11.9 cm transverse by 13.8 cm craniocaudad. Pleural spaces: Unremarkable. No pleural effusion. No pneumothorax. Heart/Mediastinum: No cardiomegaly. Bones/joints: Unremarkable. IMPRESSION: Unchanged right mid to upper lung field mass measuring 11.9 cm transverse by 13.8 cm craniocaudad. Malignancy until proven otherwise. CT with contrast recommended for further evaluation.
--- NOTE | 2023-11-27 16:07 | PC.NURSE ---
RAD at [facility]
[2023-11-27 16:12] LABS: Coronavirus 19, PCR Not Detected (NotDetected); Influenza A, PCR Not Detected (NotDetected); Influenza B, PCR Not Detected (NotDetected)
--- NOTE | 2023-11-27 16:17 | CT_ITS ---
PROCEDURE INFORMATION: Exam: CTA Chest With Contrast Exam date and time: 11/27/2023 5:14 PM Age: 73 years old Clinical indication: Cough and shortness of breath; Additional info: Right middle lobe pneumonia TECHNIQUE: Imaging protocol: Computed tomographic angiography of the chest with contrast. Exam focused on the arteries. 3D rendering (Not supervised by radiologist): MIP and/or 3D reconstructed images were created by the technologist. Radiation optimization: All CT scans at this facility use at least one of these dose optimization techniques: automated exposure control; mA and/or kV adjustment per patient size (includes targeted exams where dose is matched to clinical indication); or iterative reconstruction. Contrast material: ISOVUE; Contrast volume: 80 ml; Contrast route: INTRAVENOUS (IV); COMPARISON: CR XR CHEST PORTABLE 11/27/2023 4:02 PM FINDINGS: Pulmonary arteries: See Lungs finding. No definite pulmonary emboli. Aorta: The aorta demonstrates mild atherosclerotic calcification. No aneurysm or dissection. Thyroid: The visualized thyroid gland is normal. Lungs: There is a large rounded mass in the right upper lobe measuring approximately 13.3 x 12.5 x 13.7 cm, producing bulging to the contour of the adjacent fissures. This mass produces mass effect and narrowing upon the right bronchus intermedius and abrupt truncation of the right upper lobe bronchus. The mass also produces mass effect and narrowing upon the adjacent right pulmonary arterial and venous branches worrisome for vascular invasion. This mass extends toward the right hilar region and mediastinum and cannot exclude mediastinal invasion. Mild centrilobular emphysematous changes are present. There are reticulonodular opacities in the superolateral left upper lobe which are nonspecific but could reflect small airways disease. There is an adjacent irregular focus of architectural distortion in the left upper lobe which is nonspecific and may reflect inflammatory change. Cannot exclude malignancy. Recommend continued follow-up There is are a few irregular nodular densities in the lateral left lower lobe, some with a mildly stellate border. Findings are nonspecific. Findings could reflect inflammatory change but cannot exclude malignancy. Recommend continued follow-up Pleural spaces: There are no pleural effusions. No pneumothorax. Heart: The heart is not enlarged. There is no evidence of pericardial fluid collections. Coronary arteries: There is mild atherosclerotic calcification of the coronary arteries. Lymph nodes: A subcarinal lymph node measures 9.5 mm in short axis. No enlarged lymph nodes. The right upper lobe mass extends into the right hilar and mediastinal region worrisome for hilar mediastinal invasion. Gallbladder and bile ducts: There has been a cholecystectomy. Adrenal glands: There is hypodense enlargement of the left adrenal gland with internal Hounsfield units measuring approximately 19 suggesting adenomatous change. Similar findings involve the right adrenal gland with anterior hypodensity with internal Hounsfield units measuring approximately 12 suggesting adenomatous change. There is also more focal nonspecific nodularity involving the posteromedial an posterolateral components. The lateral limb nodularity measures 16 x 25 mm and the medial limb nodularity measures approximately 15 x 12 mm. Both adrenals appear stable. Bones/joints: The thoracic spine demonstrates mild degenerative changes at multiple levels. There is mild loss of vertebral body height involving the L1 vertebral body, unchanged from prior exam consistent with chronic process. Small sclerotic focus involves the posterior T8 vertebral body is nonspecific. The visualized inferior cervical spine demonstrates moderate discogenic and spondylitic degenerative changes. There is no evidence of acute fracture. Soft tissues: No significant soft tissue edema. IMPRESSION: 1. Large mass within the right upper lobe producing occlusion of the right upper lobe bronchus, narrowing of the right bronchus intermedius and mass effect and narrowing upon adjacent pulmonary artery and venous branches. Findings worrisome for malignancy. Recommend pulmonary consultation. 2. Patchy opacities in the right upper lobe may reflect atelectasis or edema. Cannot entirely exclude infiltrative process. 3. Mild nonspecific right middle lobe ground-glass opacities may also reflect atelectasis or edema. Cannot entirely exclude infiltrative process. 4. Small nonspecific nodular densities in the inferior anteromedial right middle lobe. 5. Several irregular nodular densities in the left lower lobe are nonspecific and may reflect infectious/inflammatory process but cannot entirely exclude malignancy. 6. Irregular focus of architectural distortion in the left upper lobe is nonspecific and may reflect inflammatory change. Cannot entirely exclude malignancy. 7. Stable adrenal masses bilaterally. 8. Mild emphysematous changes Fleischner Society follow up recommendations for incidental nodules are not indicated. Follow up per the patient's medical condition.
--- NOTE | 2023-11-27 16:33 | ECG_ITS ---
APPROVED REPORT Exam: Resting ECG HR:82 bpm ECG Measurements Heart Rate 82 AXES TN 128 P 31 QRSd 82 QRS 56 QT 361 T 66 QTc 399 Conclusion SINUS RHYTHM INDETERMINATE AXIS POSSIBLE RIGHT VENTRICULAR CONDUCTION DELAY [RSR (QR) IN V1/V2] BORDERLINE ECG UNCONFIRMED REPORT Electronically signed by : Damion Valladares MD 11/28/2023 17:58:01
[2023-11-27 16:46] LABS: Basophils % 0.2 % (0.1-2.0); Eosinophils # 0.1 K/mm3 (0.0-0.4); Eosinophils % 0.9 % (0.1-12.0); Hematocrit 40.5 % (42.0-52.0); Hemoglobin 12.6 g/dL (14.1-18.0); Lymphocytes % 12.2 % (10-50); Mean Corpuscular HGB Conc 31.2 g/dL (31.8-35.4); Mean Corpuscular Hemoglobin 27.5 pg (27.0-31.2); Mean Corpuscular Volume 88.4 fl (80-94); Mean Platelet Volume 7.6 fl (7.4-10.4); Monocytes # 0.5 K/mm3 (0.1-1.0); Monocytes % 5.4 % (1.7-9.3); Neutrophils # 6.7 K/mm3 (1.8-7.8); Neutrophils % 81.3 % (37.0-80.0); Platelet Count 497 K/mm3 (142-424); Red Blood Count 4.58 M/mm3 (4.60-6.20); Red Cell Distribution Width 17.2 % (11.5-17.5); White Blood Count 8.3 K/mm3 (4.8-10.8)
--- NOTE | 2023-11-27 16:47 | CT_ITS ---
PROCEDURE INFORMATION: Exam: CT Head Without Contrast Exam date and time: 11/27/2023 5:10 PM Age: 73 years old Clinical indication: Pain; Headache not specified; Additional info: Concern for chest malignancy, headache TECHNIQUE: Imaging protocol: Computed tomography of the head without contrast. Radiation optimization: All CT scans at this facility use at least one of these dose optimization techniques: automated exposure control; mA and/or kV adjustment per patient size (includes targeted exams where dose is matched to clinical indication); or iterative reconstruction. COMPARISON: No relevant prior studies available. FINDINGS: Brain: Mild brain volume loss. No intracranial mass demonstrated. Cerebral ventricles: No ventriculomegaly. Paranasal sinuses: Visualized sinuses are unremarkable. No fluid levels. Mastoid air cells: Visualized mastoid air cells are well aerated. Bones/joints: Unremarkable. No acute fracture. Soft tissues: Partially imaged left cheek region skin nodule, 6 mm diameter as seen. Vasculature: Atherosclerosis. IMPRESSION: No acute findings.
[2023-11-27 16:51] LABS: Chloride 105 mmol/L (98-107); Potassium 3.6 mmoL/L (3.5-5.1); Sodium 140 mmol/L (136-145)
[2023-11-27 16:53] LABS: Alanine Aminotransferase 21 U/L (12-78); Aspartate Amino Transferase 33 U/L (17-59); Blood Urea Nitrogen 13 mg/dl (9-20); Creatinine Clearance Estimated 69 mL/min (50-200); Estimated Glomerular Filt Rate 73 ml/min (>60); GFR (African American) 89 ML/MIN (>60)
[2023-11-27 16:54] LABS: Albumin Level 4.1 g/dl (3.5-5.0); Albumin/Globulin Ratio 1.1 (1.1-1.8); Alkaline Phosphatase 169 U/L (38-126); Anion Gap 9.6 mEq/L (5-15); Bilirubin,Total 0.3 mg/dl (0.2-1.3); Calcium 9.1 mg/dl (8.4-10.2); Carbon Dioxide 29 mmol/L (22.0-30.0); Globulin 3.7 g/dL (1.3-3.2); Glucose 103 mg/dl (74-100); Total Protein,Serum 7.8 g/dl (6.3-8.2)
[2023-11-27 17:06] LABS: Troponin I < 0.01 ng/ml (0.00-0.034)
--- NOTE | 2023-11-27 17:07 | PC.NURSE ---
patient transported via wheelchair to CT
[2023-11-27] MEDS: IOPAMIDOL-370 (76%);100ML BOTTLE 80 ML IV (17:18)
[2023-11-27] MEDS: SODIUM CHLORIDE 0.9% 10ML SYR (RAD ONLY) 10 ML IV (17:18)
[2023-11-27] MEDS: 0.9 % SODIUM CHLORIDE 50 ML VIAL IV (17:18)
[2023-11-27] MEDS: MORPHINE 4MG/ML SYRINGE 4 MG IV (17:22)
[2023-11-27] MEDS: ACETAMINOPHEN 1,000MG/100ML VIAL 1000 MG IV (17:22)
[2023-11-27] MEDS: ONDANSETRON 4MG/2ML VIAL 4 MG IV (17:26)
[2023-11-27] MEDS: CEFTRIAXONE SODIUM 1 GM in 0.9 % SODIUM CHLORIDE 50 ML IV (17:51)
--- NOTE | 2023-11-27 18:07 | PC.NURSE ---
DR SEO AT BEDSIDE TO UPDATE PT AND FAMILY
--- NOTE | 2023-11-27 18:07 | PC.NURSE ---
Dr. Moody at BS to update pt/visitor of results and POC
[2023-11-27] MEDS: OXYCODONE 5MG IMMEDIATE RELEASE TABLET 5 MG PO (18:16)
== END 2023-11-27 18:31 | disposition home or self-care (01) ==
PROVIDERS: Physician Assistant; Emergency Provider Emergency Medicine; PCP Internal Medicine
DX: R07.9 Chest pain, unspecified (principal); R91.8 Other nonspecific abnormal finding of lung field; R05.9 Cough, unspecified; R06.02 Shortness of breath; H92.09 Otalgia, unspecified ear; R51.9 Headache, unspecified; F17.200 Nicotine dependence, unspecified, uncomplicated
CPT/HCPCS: 70450; 71045; 71275; 80053; 84484; 85025; 87636; 93005; 96374; 96375; 99285; J0131; J0696; J2405; Q9967

== ENCOUNTER 2023-12-12 13:33 | Inpatient (IN) | payer MEDICARE, SELFPAY ==
[2023-12-09 09:28] VITALS: BMI 22.9
[2023-12-12] VITALS (24 sets, daily range): BP systolic 99–143; BP diastolic 55–96; PULSE 81–108; RESP 15–30; TEMP 36.8–37.2; O2SAT 92–100; BMI 24.6
--- NOTE | 2023-12-12 | XR_ITS ---
FINAL REPORT CLINICAL HISTORY: FL Time: 1.1 min DAP: 14.84 mGy FINDINGS: FLUOROSCOPY LESS THAN 1 HOUR HISTORY: Intraoperative films for bronchoscopy FINDINGS: Fluoroscopic guidance was provided for bronchoscopy. A single spot film was obtained. 1.1 minutes of fluoroscopy time were used. The dosage used was 14.84 mGy. IMPRESSION: As above. Reviewed, Interpreted and Dictated by Catherine Schultz MD Transcribed by Mercy Heaton Authenticated and [facility]
[2023-12-12] MEDS: LACTATED RINGERS 1000ML 1,000 ML 25 ML IV (10:03)
[2023-12-12 10:25] LABS: Basophils % 0.1 % (0.1-2.0); Eosinophils # 0.1 K/mm3 (0.0-0.4); Hematocrit 38.4 % (42.0-52.0); Hemoglobin 12.2 g/dL (14.1-18.0); Lymphocytes # 0.8 K/mm3 (0.7-4.5); Lymphocytes % 10.9 % (10-50); Mean Corpuscular HGB Conc 31.8 g/dL (31.8-35.4); Mean Corpuscular Hemoglobin 28.7 pg (27.0-31.2); Mean Corpuscular Volume 90.4 fl (80-94); Mean Platelet Volume 7.3 fl (7.4-10.4); Monocytes # 0.3 K/mm3 (0.1-1.0); Monocytes % 4.3 % (1.7-9.3); Neutrophils # 6.4 K/mm3 (1.8-7.8); Neutrophils % 83.7 % (37.0-80.0); Platelet Count 536 K/mm3 (142-424); Red Blood Count 4.24 M/mm3 (4.60-6.20); Red Cell Distribution Width 16.9 % (11.5-17.5); White Blood Count 7.6 K/mm3 (4.8-10.8)
--- NOTE | 2023-12-12 10:26 | EXP.ANES.CKL ---
[facility] Disclaimer: The information contained in this section may have been updated after the patient was seen, as this information can be updated by other users. Medical History Dyspnea on exertion History of kidney stones Hyperlipidemia Pulmonary emphysema Smoking greater than 30 pack years Surgical History History of cervical spinal surgery History of cholecystectomy History of colonoscopy Family History Other COPD (chronic obstructive pulmonary disease) Cancer Diabetes Heart attack Social History Smoking Status: Current every day smoker alcohol intake: never substance use type: denies use current occupational status: retired Travel in the last 8 weeks: None [facility] Anesthesia Checklist Patient Identification Patient Identification: Arm Band Structural Data Admitted From: Home Planned Operative Procedure/s: Bronchoscopy with EBUS Consent for Planned Operative Procedure(s) Verified: Yes Verified Documents: Surgical Consent and History and Physical NPO Status Verified Time NPO: 00:00 Additional verifications Anesthesia Reactions: No Hx Blood Transfusions: No Blood Transfusion Reaction: No Airway Assessment Mallampati Score:: Class II C-Spine Mobility Assessed: Yes TMJ Mobility Assessed: Yes Dentition: Edentulous Neurological Assessment Level of Consciousness: Awake and Alert Anesthesia Plan Anesthesia Risk discussed: Yes Anesthesia Plan: Verified ASA Class: III Anesthesia Type: MAC
[2023-12-12 10:32] LABS: Anion Gap 11.2 mEq/L (5-15); Blood Urea Nitrogen 15 mg/dl (9-20); Calcium 9.4 mg/dl (8.4-10.2); Carbon Dioxide 28 mmol/L (22.0-30.0); Chloride 105 mmol/L (98-107); Creatinine Clearance Estimated 69 mL/min (50-200); Estimated Glomerular Filt Rate 83 ml/min (>60); GFR (African American) 100 ML/MIN (>60); Glucose 118 mg/dl (74-100); Potassium 4.2 mmoL/L (3.5-5.1); Sodium 140 mmol/L (136-145)
--- NOTE | 2023-12-12 13:23 | P.PNANES_ITS ---
[facility] Anesthesia Record Part I Anesthesia Record I Intake, IV Amount: 800 Hydration: Adequate Estimated blood loss (mL): 50 Urine output (mL): 0 Blood Pressure: 114/61 SaO2: 99 Pulse Rate: 102 Airway Patency: Patent Respiratory Rate: 21 Temperature: 99 F Patient is:: Intubated and Stable Stable to PACU at:: 13:20
[2023-12-12] MEDS: propofoL 100 ML 13.0600000000000005 MG IV (13:38)
--- NOTE | 2023-12-12 13:38 | SUR.OPER ---
Per Dr nayak patient is to stay intubated and be admitted for observation in the ICU. Report given to GUY
[2023-12-12] MEDS: FENTANYL CITRATE/PF 1,000 MCG in 0.9 % SODIUM CHLORIDE 80 ML 2.5 MCG IV (13:39)
--- NOTE | 2023-12-12 13:50 | P.PCN_ITS ---
Procedure: Date: 12/12/23 Patient Date of :: 1950 Procedure Performed:: Bronchoscopy airway examination transbronchial endobronchial lung biopsy, endobronchial ultrasound-guided fine-needle aspiration biopsy Indications:: Lung mass and lymphadenopathy Performing Provider:: Ruthy Navas MD Referring Provider:: Dr. Villarreal Sedation:: General anesthesia Procedure:: Bronchoscopy airway examination transbronchial endobronchial lung biopsy, endobronchial ultrasound-guided fine-needle aspiration biopsy: EBUS bronchoscopy was advanced the ET tube and lymph node surveillance was performed. Along with a large mass patient noted to lymphadenopathy at stations 10 R and station 7. Fine-needle aspiration was performed in both the stations and was sent in [facility] for cytopathologic examination. No other significant lymphadenopathy appreciated. EBUS bronchoscopy was retracted and a clean diagnostic bronchoscopy was advanced and airway examination performed. Airways on the left lung appear relatively normal. The opening of the right upper lobe bronchus is not clearly appreciated and enclosed by mass. The mass is also pushing with near complete occlusion of the right bronchus intermedius. The scope was able to pass beyond and the right middle lobe and lower lobe airways appeared relatively patent. Transbronchial biopsies were performed in the in the right upper lobe. Patient experienced significant bleeding postbiopsy. The diagnostic bronchoscopy was exchanged with a therapeutic bronchoscopy to suction the large blood clots. A total of three transbronchial biopsies was performed. After the bleeding was contained, endobronchial biopsies was performed for the noted endobronchial lesion and patient again experienced significant bleeding. Cold saline was instilled to c ontrol bleeding both after endobronchial and transbronchial lung biopsies. Eventually by the end of the procedure No obvious evidence of active bleeding noted. All blood clots were suctioned. However given significant complication the patient experienced along with lower lung reserve and concern for further bleeding and blood clots, the plan was made to remain patient intubated for the next 12 to 24 hours. Findings:: Please see the procedure note Recommendations:: Admit to inpatient for further monitoring. Continue mechanical ventilatory support. Complications:: Please see the procedure note Estimated blood obtained (mL): 25
--- NOTE | 2023-12-12 14:00 | PC.NURSE ---
arrived by stretcher from surgery
--- NOTE | 2023-12-12 14:03 | EXP.HP ---
History of Present Illness *Admission Date: 12/12/23 *Reason for visit:: hemoptysis *History of present illness: Mr. Nolasco is a 73-year-old male with extensive smoking history, emphysema, recent diagnosis of lung mass who presented for elective bronchoscopy today with pulmonology. Patient was seen on October 17 in the ER with concern for pneumonia, imaging concerning for pneumonia and right hilar lung mass. Referred as outpatient to pulmonology and oncology. Has had worsening respiratory distress over the past 2 months with recent identification of lung mass. During bronchoscopy today, patient was taken for transbronchial biopsy, EBUS, FNA of suspected lung cancer. He experience significant hemoptysis during the procedure, numerous clots were evacuated from bronchus. Bleeding eventually stopped but it was deemed safest for patient stay intubated and admission was requested to monitor overnight with plan for repeat bronchoscopy in the morning. Medicine was contacted for admission. On evaluation, patient's family is at bedside. He is on minimal vent settings. Family at bedside provides history. Mild distress with sedation being adjusted. At baseline level of function prior to admission. [facility] Disclaimer: The information contained in this section may have been updated after the patient was seen, as this information can be updated by other users. Medical History Dyspnea on exertion Hilar lymphadenopathy History of kidney stones Hyperlipidemia Mediastinal lymphadenopathy On mechanically assisted ventilation Pulmonary emphysema Smoking greater than 30 pack years Surgical History History of cervical spinal surgery History of cholecystectomy History of colonoscopy Family History Diabetes Heart attack COPD (chronic obstructive pulmonary disease) Cancer Social History Smoking Status: Current every day smoker alcohol intake: never substance use type: denies use current occupational status: retired Travel in the last 8 weeks: None Review of Systems Review of Systems Review of systems (narrative): 14 point review of systems performed, pertinent positives and negatives as per HPI Meds Home Medications and Allergies Home Medications Medication Instructions Recorded Confirmed Type finasteride 5 mg tablet 5 mg PO DAILY hyperlipidemia 04/10/20 12/12/23 History rosuvastatin 10 mg tablet 10 mg PO 10 hyperlipidemia 04/10/20 12/12/23 History sertraline 100 mg tablet 100 mg PO DAILY depression 04/10/20 12/12/23 History tamsulosin 0.4 mg capsule 0.4 mg PO DAILY prostate 04/10/20 12/12/23 History budesonide 160 mcg-glycopyr 9 2 inh inhalation BID 90 days #10.7 12/06/23 12/12/23 Rx mcg-formot 4.8 mcg/actuation HFA grams inhaler (Breztri Aerosphere) ipratropium 0.5 mg-albuterol 3 mg 3 ml inhalation QID PRN shortness 12/06/23 12/12/23 Rx (2.5 mg base)/3 mL nebulization of breath or wheezing 90 days #90 soln mL hydrocodone 5 mg-acetaminophen 325 See Rx Instructions PO Q8H PRN 12/07/23 12/12/23 Rx mg tablet pain #60 tabs New Prescriptions to Start Prescriptions: Allergies Allergy/AdvReac Type Severity Reaction Status Date / Time YELLOW PAIN PILL (UNSURE Allergy Mild Uncoded 12/06/23 14:22 NAME) Exam Data for Last 24 hours Vital signs and Labs for Last 24 Hours: Temp Pulse Resp BP Pulse Ox O2 Del Method 99 F 102 H 21 114/61 94 L Room Air 12/12/23 13:24 12/12/23 13:24 12/12/23 13:24 12/12/23 13:24 12/12/23 10:08 12/12/23 10:08 Laboratory Results - last 24 hr 12/12/23 10:15: WBC 7.6, RBC 4.24 L, Hgb 12.2 L, Hct 38.4 L, MCV 90.4, MCH 28.7, MCHC 31.8, RDW 16.9, Plt Count 536 H, MPV 7.3 L, Neut % (Auto) 83.7 H, Lymph % (Auto) 10.9, Placer % (Auto) 4.3, Eos % (Auto) 1.0, Baso % (Auto) 0.1, Neut # (Auto) 6.4, Lymph # (Auto) 0.8, Placer # (Auto) 0.3, Eos # (Auto) 0.1, Baso # (Auto) 0.0, Sodium 140, Potassium 4.2, Chloride 105, Carbon Dioxide 28, Anion Gap 11.2, BUN 15, Creatinine 0.90, Estimated Creat Clear 69, Estimated GFR 83, Est GFR ( Amer) 100, Glucose 118 H, Calcium 9.4 I & O for Last 24 hours: Intake & Output 12/09/23 12/10/23 12/11/23 12/12/23 23:59 23:59 23:59 23:59 Intake Total 800 / 800 Balance 800 / 800 Weight 72.575 kg Constitutional Constitutional: no acute distress Comments: alert, mild sedation, responds to stimuli *Routine HEENT Exam Head: Present normocephalic Eye: Present EOMI and PERRL ENT: Present mucous membranes moist *Routine Neck Exam Neck: Present supple; Absent lymphadenopathy *Routine Respiratory Exam Respiratory: Present patient mechanically ventilated and rhonchi *Routine Cardiovascular Exam Cardiovascular: Present RRR *Routine Abdominal Exam Abdominal: Present soft and normoactive bowel sounds; Absent tenderness *Routine Rectal Exam Rectal:: deferred *Routine Genitalia Exam Genitalia:: deferred *Routine Extremities Exam Extremities: Absent cyanosis, clubbing or edema *Routine Skin Exam Skin: Present warm; Absent rash *Routine Neurological Exam Neurological: Present alert Comments: intubated, on sedation, but still responsive Assessment and Plan *Assessment and plan (1) Lung mass: Status: Acute Category: Medical Code(s): R91.8 - Other nonspecific abnormal finding of lung field (2) Hemoptysis: Status: Acute Category: Medical Code(s): R04.2 - Hemoptysis (3) On mechanically assisted ventilation: Status: Acute Category: Medical Code(s): Z99.11 - Dependence on respirator [ventilator] status (4) Smoking greater than 30 pack years: Status: Acute Category: Social Hx Code(s): F17.210 - Nicotine dependence, cigarettes, uncomplicated (5) Pulmonary emphysema: Status: Acute Category: Medical Code(s): J43.9 - Emphysema, unspecified Plan 73-year-old male with extensive smoking history. Recent diagnosis of suspected lung mass. Referred to oncology who subsequently referred patient to pulmonology for further workup. Patient taken for elective bronchoscopy today. Developed some hemoptysis during procedure. Discussed case with pulmonology, request admission for sedation and keeping patient ventilated. Will need repeat bronchoscopy in the morning to monitor for resolution of hemoptysis. Medicine agreed to admit for further management. Admitted to ICU. Problems addressed as follows: Hemoptysis Lung mass Emphysema On mechanical ventilation -EBUS and FNA performed, hemoptysis during procedure. Bleeding appears to have subsided at this time. Continue to monitor overnight. -Biopsy sent for pathology. -Pulmonology consulted and assisting with critical care/ventilator management. Currently minimal ventilator settings, PEEP of 5 volume of 420 rate of 18 and FiO2 of 35%. - VBG did not show any evidence of hypoxic/hypercarbic respiratory failure. - Continue propofol and fentanyl for analgesia and sedation. - No need for antibiotics at this point of time - DuoNebs every 4 hours scheduled along with Pulmicort every 12 schedule - GI ulcer prophylaxis - Famotidine 20mg IV BID N.p.o. Full code SCDs Anticipate extubation in the morning after repeat bronchoscopy if no further bleeding.
[2023-12-12] MEDS: FENTANYL 100MCG/2ML VIAL 12.5 MCG IV (14:33)
[2023-12-12 15:08] LABS: VBG Base Excess -4.9 mmol/L (-2.4-2.3); VBG HCO3 19.7 mmol/L (23-30); VBG Oxygen Saturation 95.1 % (50-70); VBG PCO2 31.9 mmol/L (35-51); VBG PH 7.41 mmol/L (7.31-7.41); VBG PO2 73.4 mmol/L (28-40); VBG Total CO2 20.7 mmol/L (23-27)
--- NOTE | 2023-12-12 15:11 | PC.NURSE ---
RESP CARE NOTE: No protocol ABG, and no protocol sputum per Dr Navas telephone order. No suctioning unless patient desaturates, per Dr Navas.
--- NOTE | 2023-12-12 15:21 | PC.NURSE ---
spoke with Marquita MARSH at this time who states Dr. Navas doesn't want pt suctioned unless desats.
[2023-12-12] MEDS: FENTANYL 12.5MCG/0.25ML 12.5 MCG IV ×8 (15:41→19:05)
[2023-12-12] MEDS: propofoL 100 ML 21.7699999999999996 MG IV (16:23)
--- NOTE | 2023-12-12 16:23 | P.CONS_ITS ---
History of Present Illness History of present illness: Mr. Nolasco is a 73-year-old male greater than 30 PPD following in pulmonary for lung mass scheduled for an elective bronchoscopy transbronchial biopsy EBUS FNA experienced significant amount of hemoptysis, admitted to the hospital as it deemed necessary that the patient to be remain remained intubated mechanical ventilatory support to avoid any further dislodgment and concern for further hemoptysis. [facility] Disclaimer: The information contained in this section may have been updated after the patient was seen, as this information can be updated by other users. Medical History Dyspnea on exertion Hilar lymphadenopathy History of kidney stones Hyperlipidemia Mediastinal lymphadenopathy On mechanically assisted ventilation Pulmonary emphysema Smoking greater than 30 pack years Surgical History History of cervical spinal surgery History of cholecystectomy History of colonoscopy Family History Other COPD (chronic obstructive pulmonary disease) Cancer Diabetes Heart attack Social History (Updated 12/12/23 @ 10:27 by Sina Begum CRNA) Smoking Status: Current every day smoker alcohol intake: never substance use type: denies use current occupational status: retired Travel in the last 8 weeks: None Review of Systems Review of Systems Review of systems:: unable to obtain Review of systems (narrative): Intubated and sedated Pulmonology Exam Inpatient Vital signs and Labs for Last 24 Hours: Temp Pulse Resp BP Pulse Ox O2 Del Method O2 Flow Rate 99 F 92 H 21 131/73 93 L Mechanical Ventilation 40 12/12/23 13:24 12/12/23 16:00 12/12/23 16:00 12/12/23 16:00 12/12/23 16:05 12/12/23 16:05 12/12/23 15:00 FiO2 30 12/12/23 16:05 Laboratory Results - last 24 hr 12/12/23 10:15: WBC 7.6, RBC 4.24 L, Hgb 12.2 L, Hct 38.4 L, MCV 90.4, MCH 28.7, MCHC 31.8, RDW 16.9, Plt Count 536 H, MPV 7.3 L, Neut % (Auto) 83.7 H, Lymph % (Auto) 10.9, [place] % (Auto) 4.3, Eos % (Auto) 1.0, Baso % (Auto) 0.1, Neut # (Auto) 6.4, Lymph # (Auto) 0.8, [place] # (Auto) 0.3, Eos # (Auto) 0.1, Baso # (Auto) 0.0, Sodium 140, Potassium 4.2, Chloride 105, Carbon Dioxide 28, Anion Gap 11.2, BUN 15, Creatinine 0.90, Estimated Creat Clear 69, Estimated GFR 83, Est GFR ( Amer) 100, Glucose 118 H, Calcium 9.4 12/12/23 15:03: VBG pH 7.41, VBG pCO2 31.9 L, VBG pO2 73.4 H, VBG HCO3 19.7 L, VBG Total CO2 20.7 L, VBG O2 Saturation 95.1 H, VBG Base Excess -4.9 L I & O for Labs for Last 24 Hours: Intake & Output 12/09/23 12/10/23 12/11/23 12/12/23 23:59 23:59 23:59 23:59 Intake Total 824.771 / 824.771 Output Total 1000 / 1000 Balance -175.229 / -175.229 Weight 160 lb 171 lb 9 oz Constitutional: Present moderate distress Comment:: Intubated and Sedated Head: Present normocephalic and atraumatic Neck: Present normal inspection and trachea midline Respiratory: Present patient mechanically ventilated and wheezes; Absent prolonged expiratory phase Cardiac: Present S1/S2 and Tachycardia GI: Present soft; Absent distention or tenderness Skin: Present intact; Absent cyanosis Neuro: Absent alert, awake or oriented x 3 Comment:: Intubated and sedated Extremities: Present normal inspection; Absent clubbing or cyanosis Psychiatric: Present unable to assess Meds Home Medications and Allergies Home Medications Medication Instructions Recorded Confirmed Type finasteride 5 mg tablet 5 mg PO DAILY hyperlipidemia 04/10/20 12/12/23 History rosuvastatin 10 mg tablet 10 mg PO 10 hyperlipidemia 04/10/20 12/12/23 History sertraline 100 mg tablet 100 mg PO DAILY depression 04/10/20 12/12/23 History tamsulosin 0.4 mg capsule 0.4 mg PO DAILY prostate 04/10/20 12/12/23 History budesonide 160 mcg-glycopyr 9 2 inh inhalation BID 90 days #10.7 12/06/23 12/12/23 Rx mcg-formot 4.8 mcg/actuation HFA grams inhaler (Breztri Aerosphere) ipratropium 0.5 mg-albuterol 3 mg 3 ml inhalation QID PRN shortness 12/06/23 12/12/23 Rx (2.5 mg base)/3 mL nebulization of breath or wheezing 90 days #90 soln mL hydrocodone 5 mg-acetaminophen 325 See Rx Instructions PO Q8H PRN 12/07/23 12/12/23 Rx mg tablet pain #60 tabs New Prescriptions to Start Prescriptions: Allergies Allergy/AdvReac Type Severity Reaction Status Date / Time YELLOW PAIN PILL (UNSURE Allergy Mild Uncoded 12/06/23 14:22 NAME) Results Laboratory Findings 12/12/23 10:15 12/12/23 10:15 Abnormal lab findings: Abnormal Labs 12/12/23 12/12/23 10:15 15:03 RBC 4.24 L Hgb 12.2 L Hct 38.4 L Plt Count 536 H MPV 7.3 L Neut % (Auto) 83.7 H VBG pCO2 31.9 L VBG pO2 73.4 H VBG HCO3 19.7 L VBG Total CO2 20.7 L VBG O2 Saturation 95.1 H VBG Base Excess -4.9 L Glucose 118 H Assessment and Plan *Assessment and plan (1) On mechanically assisted ventilation: Status: Acute Category: Medical Code(s): Z99.11 - Dependence on respirator [ventilator] status (2) Lung mass: Status: Acute Category: Medical Code(s): R91.8 - Other nonspecific abnormal finding of lung field (3) Pulmonary emphysema: Status: Acute Category: Medical Code(s): J43.9 - Emphysema, unspecified (4) Dyspnea on exertion: Status: Acute Category: Medical Code(s): R06.09 - Other forms of dyspnea (5) Mediastinal lymphadenopathy: Status: Acute Category: Medical Code(s): R59.0 - Localized enlarged lymph nodes (6) Hilar lymphadenopathy: Status: Acute Category: Medical Code(s): R59.0 - Localized enlarged lymph nodes Plan Mr. Nolasco is a 73-year-old male greater than 30 PPD following in pulmonary for lung mass scheduled for an elective bronchoscopy transbronchial biopsy EBUS FNA experienced significant amount of hemoptysis, admitted to the hospital as it deemed necessary that the patient to be remain remained intubated mechanical ventilatory support to avoid any further dislodgment and concern for further hemoptysis. Currently minimal ventilator settings, PEEP of 5 volume of 420 rate of 18 and FiO2 of 35%. VBG did not show any evidence of hypoxic/hypercarbic respiratory failure. Elevated lactate. Hemodynamically stable. Will closely monitor. Plan: Continue propofol and fentanyl. Follow with chest x-ray portable and VBG. Continue to wean current ventilator settings as tolerated. Minimal vent settings No need for antibiotics at this point of time Avoid unnecessary suctioning Follow bronchoscopy culture results DuoNebs every 4 hours scheduled along with Pulmicort every 12 schedule - Continue mechanical ventilatory support - Continue AnalgoSedation with Propofol and Fentanyl with CPOT gal less than or euqal to 2 and RASS goal of to 2 (No need for deep sedation) - VAP bundle Recommend elevate head of the bed at 30 to 45 degrees Recommend oral care with chlorhexidne Recommend GI ulcer prophylaxis - Famotidine 20mg IV BID Recommend chemical DVT prophylaxis
--- NOTE | 2023-12-12 16:25 | XR_ITS ---
PROCEDURE INFORMATION: Exam: XR Chest Exam date and time: 12/12/2023 5:26 PM Age: 73 years old Clinical indication: Condition or disease; Other: Intubated TECHNIQUE: Imaging protocol: Radiologic exam of the chest. Views: 1 view. COMPARISON: CR XR CHEST AP 12/12/2023 12:00 AM FINDINGS: Tubes, catheters and devices: Endotracheal tube in place with tip projecting 12 cm above the shiloh at the level of the clavicular heads. Lungs: Right upper lobe consolidative airspace opacity and reticulonodular opacities in the lower left lung, grossly unchanged from 11/27/2023 chest radiograph. Pleural spaces: No significant pleural effusion. No pneumothorax. Heart/Mediastinum: Cardiomediastinal silouhette is within normal limits. Bones/joints: No evidence of acute osseous abnormality. IMPRESSION: 1. Right upper lobe consolidative airspace opacity and reticulonodular opacities in the lower left lung, grossly unchanged from 11/27/2023 chest radiograph. 2. Endotracheal tube in place with tip projecting 12 cm above the shiloh at the level of the clavicular heads. Recommended advancing 8-9 cm.
--- NOTE | 2023-12-12 16:36 | PC.NURSE ---
Spoke with Dr. Navas at this time. states it is okay to hold off on OG at this time. states to await SBT in the am.
--- NOTE | 2023-12-12 18:07 | PC.NURSE ---
et tube advanced from 22 cm to 28 cm per order from Dr. Rowe. RT at bedside to advance tube
--- NOTE | 2023-12-12 18:08 | PC.NURSE ---
pt new admit this shift. pt arrived to the floor intubated and on Propofol and Fentanyl. Propofol infusing at 45 mcg/kg/min (19.7 ml/hr) and Fentanyl infusing at 50 mcg/hr ( 5 ml/hr). MAP to maintain >65. pt has size 8.5 et tube, 28 at lip ( RT called to advance tube per Dr. Rowe/Dr. Navas. LS diminished. Dr. Navas and Dr. Rowe aware of no OG tube at this time and states okay to hold off. abdomen soft, bowel sounds active. f/c in place and adequate UOP. scuds in place. family at bedside and updated on POC.
--- NOTE | 2023-12-12 18:09 | XR_ITS ---
FINAL REPORT CLINICAL HISTORY: et tube advancement COMPARISON: One hour prior. FINDINGS: There has been interval advancement of an endotracheal tube. The endotracheal tube is located in the right mainstem bronchus, 2 cm beyond the shiloh. There is persistent masslike opacity in the right midlung field. The left lung is clear. IMPRESSION: Endotracheal tube extending into the right mainstem bronchus by 1.9 cm. Reviewed, Interpreted and Dictated by Jamie Katz MD Transcribed by Vu Seo Authenticated and [facility]
--- NOTE | 2023-12-12 18:27 | XR_ITS ---
FINAL REPORT CLINICAL HISTORY: et tube advancement again COMPARISON: 17:31, one hour prior. FINDINGS: An endotracheal tube is retracted to end just above the shil[place]. Again noted is a masslike opacity in the right midlung. IMPRESSION: Reposition of endotracheal tube in good position. Reviewed, Interpreted and Dictated by Jamie Katz MD Transcribed by Vu Seo Authenticated and [facility]
--- NOTE | 2023-12-12 18:28 | PC.NURSE ---
et tube frm [address] Rowe[address] Xray at bedside to obtain chest xray.
--- NOTE | 2023-12-12 18:37 | PC.NURSE ---
pt agitated and restless during tube advancement and medicated with PRN Fentanyl.
[2023-12-12] MEDS: IPRATROPIUM/ALBUTEROL 3 ML NEB IH ×2 (18:48→22:35)
[2023-12-12] MEDS: BUDESONIDE 0.5MG/2ML NEB 0.5 MG IH (18:48)
[2023-12-12] MEDS: propofoL 100 ML 19.6000000000000014 MG IV (20:45)
[2023-12-12] MEDS: FENTANYL CITRATE/PF 1,000 MCG in 0.9 % SODIUM CHLORIDE 80 ML 20 MCG IV (22:11)
--- NOTE | 2023-12-12 22:46 | PC.NURSE ---
Addendum entered by Nicole Way RN 12/12/23 22:58: FENT @ 200 MCG/HR Addendum entered by Nicole Way RN 12/12/23 22:55: NOT COMPLETED WHEN SAVED... NEURO: PT OPENS EYES, FOLLOWS COMMANDS, AND NODS APPROPRIATELY; AFEBRILE CARDAIC: NSR, BP STABLE, +2 PULSES, NO EDEMA NOTED RESP: #8.5 ETT, 26 @ LIP; 420 TV/30 %/20 RR/5 PEEP; PT RESPONDING WELL ONCE SEDATED; 425 TV /22 PEAK / 20 RR GI: ACTIVE BS; NO NG/OG PER MD; NPO : BENAVIDES CATHETER INTACT; CLEAR, YELLOW URINE NOTED SKIN: INTACT; MILD BRUISING NOTED PIV: #20 RFA, #20 LFA GTT: PROP @ 50 MCG/KG/MIN, FENT 200 MC/HR Original Note: 1900, THE START OF THIS RN'S SHIFT, PT'S SEEMED VERY AGITATED, ANXIOUS, WORKING AGAINST THE VENTILATOR. PT'S FAMILY WAS HOVERING OVER PT AND VERY ANXIOUS WELL; THIS RN EDUCATED FAMILY ON HOW THAT CAN MAKE THE PT'S SITUATION WORSE AND THIS RN EDUCATED THE FAMILY ON HOW THEY NEED TO REMAIN CALM TO HELP ENCOURAGE THE PT TO REMAIN CALM. THIS RN ASKED THE PT IF HE WAS IN PAIN AND HE OPENED HIS EYES AND NODDED YES; THIS RN INCREASED FENTANYL TO MAX DOSE D/T FENTANYL PRN Q10 MINS IVP NOT WORKING ON PREVIOUS SHIFT; PROPOFOL WAS SET TO MAX DOSE WELL. PT DID RELAX MORE AND TOLERATING VENT BETTER WITH THESE DOSES. THIS RN IS GOING TO SLOWLY TITRATE PROPOFOL AND FENTANYL BASED ON PT'S VS AND TOLERANCE. NEURO: PT OPENS EYES, FOLLOWS COMMANDS, AND NODS APPROPRIATELY; AFEBRILE CARDAIC: NSR, BP STABLE, +2 PULSES, NO EDEMA NOTED RESP: #8.5 ETT, 26 @ LIP; 420 TV/30 %/20 RR/5 PEEP; PT RESPONDING WELL ONCE SEDATED; 425 TV /22 PEAK / 20 RR GI: ACTIVE BS; NO NG/OG PER MD; NPO : BENAVIDES CATHETER INTACT; CLEAR, YELLOW URINE NOTED SKIN: INTACT; MILD BRUISING NOTED PIV: #20 RFA,
[2023-12-12] MEDS: FAMOTIDINE 20MG/2ML VIAL 20 MG IV (23:58)
[2023-12-13] VITALS (29 sets, daily range): BP systolic 89–151; BP diastolic 40–79; PULSE 75–99; RESP 20–26; TEMP 36.8–38; O2SAT 87–98; BMI 23.7
[2023-12-13] MEDS: IPRATROPIUM/ALBUTEROL 3 ML NEB IH ×4 (02:32→15:15)
[2023-12-13] MEDS: FENTANYL CITRATE/PF 1,000 MCG in 0.9 % SODIUM CHLORIDE 80 ML 17.5 MCG IV (03:11)
[2023-12-13] MEDS: propofoL 100 ML 15.2400000000000002 MG IV (03:12)
[2023-12-13] MEDS: BUDESONIDE 0.5MG/2ML NEB 0.5 MG IH (06:21)
--- NOTE | 2023-12-13 07:12 | EXP.ANES.II ---
[facility] Anesthesia Record Part II Anesthesia Record Part II Discharge Time: 14:00 Destination: Medical Surgical Department PACU nurse assessment reviewed?: Yes Patient Condition:: Good Anesthesia Complications:: None Swallowing reflex intact?: No Airway Patency: Patent Cyanosis?: No Blood Pressure: 99/55 SaO2: 98 Respiratory Rate: 22 Pulse Rate: 99 Temperature: 99 F Mental Status: Unresponsive Pain level:: 0 Nausea and/or vomitting:: None Intake, IV Amount: 0 Hydration: Adequate Comments:: Pt taken to PACU then Step Down still intubated and sedated per request of Dr. Navas.
[2023-12-13 07:49] LABS: Eosinophils % 0.2 % (0.1-12.0); Mean Corpuscular HGB Conc 31.1 g/dL (31.8-35.4)
[2023-12-13 07:58] LABS: Chloride 104 mmol/L (98-107); Potassium 4.1 mmoL/L (3.5-5.1); Sodium 136 mmol/L (136-145)
[2023-12-13 08:00] LABS: Blood Urea Nitrogen 15 mg/dl (9-20); Creatinine Clearance Estimated 71 mL/min (50-200); Estimated Glomerular Filt Rate 83 ml/min (>60); GFR (African American) 100 ML/MIN (>60)
[2023-12-13 08:01] LABS: Alanine Aminotransferase 19 U/L (12-78); Albumin Level 3.5 g/dl (3.5-5.0); Albumin/Globulin Ratio 1.2 (1.1-1.8); Alkaline Phosphatase 150 U/L (38-126); Anion Gap 6.1 mEq/L (5-15); Aspartate Amino Transferase 36 U/L (17-59); Bilirubin,Total 0.3 mg/dl (0.2-1.3); Calcium 8.8 mg/dl (8.4-10.2); Carbon Dioxide 30 mmol/L (22.0-30.0); Globulin 2.9 g/dL (1.3-3.2); Glucose 93 mg/dl (74-100); Magnesium 2.4 mg/dl (1.6-2.3); Total Protein,Serum 6.4 g/dl (6.3-8.2)
[2023-12-13 08:11] LABS: Basophils % 0.2 % (0.1-2.0); Hematocrit 34.5 % (42.0-52.0); Lymphocytes # 1.1 K/mm3 (0.7-4.5); Mean Corpuscular Hemoglobin 28.4 pg (27.0-31.2); Mean Corpuscular Volume 91.5 fl (80-94); Monocytes # 0.6 K/mm3 (0.1-1.0); Monocytes % 6.3 % (1.7-9.3); Neutrophils # 7.1 K/mm3 (1.8-7.8); Neutrophils % 80.4 % (37.0-80.0); Platelet Count 459 K/mm3 (142-424); Red Blood Count 3.77 M/mm3 (4.60-6.20); Red Cell Distribution Width 17.1 % (11.5-17.5); White Blood Count 8.8 K/mm3 (4.8-10.8)
[2023-12-13 08:12] LABS: Hemoglobin 10.7 g/dL (14.1-18.0)
--- NOTE | 2023-12-13 08:45 | HMH.PHAINT1 ---
Pharmacy Intervention Comments: Verified home medications using external fill history and note from previous office visit (12/06/23).
--- NOTE | 2023-12-13 08:49 | XR_ITS ---
FINAL REPORT CLINICAL HISTORY: pnm COMPARISON: 12/12/2023 FINDINGS: A portable view of the chest was obtained. An endotracheal tube remains present with its tip slightly low but stable. Cardiac and mediastinal silhouettes are within normal limits. The right midlung masslike opacity noted on the prior chest x-rays is stable. There is a subtle patchy left base opacity, which is also unchanged. There is no pleural effusion or pneumothorax. IMPRESSION: Masslike opacity in the right midlung stable. Subtle patchy left base opacity, also stable. Reviewed, Interpreted and Dictated by Catherine Schultz MD Transcribed by [facility] Authenticated and [facility]
[2023-12-13] MEDS: propofoL 100 ML 50 MG IV (09:25)
--- NOTE | 2023-12-13 09:39 | PC.NURSE ---
12.5mcg fentanyl push given per verbal order at bedside from MD Navas, MD Navas performing bedside bronchoscopy with surgery team and RT May hayden
[2023-12-13] MEDS: FENTANYL 12.5MCG/0.25ML 12.5 MCG IV (09:48)
[2023-12-13] MEDS: FENTANYL CITRATE/PF 1,000 MCG in 0.9 % SODIUM CHLORIDE 80 ML 5 MCG IV (09:48)
--- NOTE | 2023-12-13 09:49 | PC.NURSE ---
bronch complete, per MD Navas wean sedation and extubate pt, hold antibiotic ordered as pt does not have pneumonia left lung, notified Julio César LEHMAN and he stated would message MD Navas
[2023-12-13] MEDS: FAMOTIDINE 20MG/2ML VIAL 20 MG IV (10:21)
--- NOTE | 2023-12-13 10:45 | PC.NURSE ---
pt extubated per RT's Rehan with this RN present, pt on 3LNC and oxygen saturations are 95-97%
--- NOTE | 2023-12-13 11:23 | P.PN_ITS ---
Subjective *Date: 12/13/23 *Time: 11:23 Interval history: No acute respiratory events overnight. Minimal ventilator settings. Pulmonology Exam Inpatient Vital signs and Labs for Last 24 Hours: Temp Pulse Resp BP Pulse Ox O2 Del Method O2 Flow Rate 98.4 F 81 20 111/62 94 L Mechanical Ventilation 30 12/13/23 08:00 12/13/23 08:00 12/13/23 08:00 12/13/23 08:00 12/13/23 08:00 12/13/23 08:00 12/12/23 18:36 FiO2 30 12/13/23 08:00 Laboratory Results - last 24 hr 12/12/23 15:03: VBG pH 7.41, VBG pCO2 31.9 L, VBG pO2 73.4 H, VBG HCO3 19.7 L, VBG Total CO2 20.7 L, VBG O2 Saturation 95.1 H, VBG Base Excess -4.9 L 12/13/23 06:55: WBC 8.8, RBC 3.77 L, Hgb 10.7 L D, Hct 34.5 L, MCV 91.5, MCH 28.4, MCHC 31.1 L, RDW 17.1, Plt Count 459 H, MPV 8.0, Neut % (Auto) 80.4 H, Lymph % (Auto) 13.0, [place] % (Auto) 6.3, Eos % (Auto) 0.2, Baso % (Auto) 0.2, Neut # (Auto) 7.1, Lymph # (Auto) 1.1, [place] # (Auto) 0.6, Eos # (Auto) 0.0, Baso # (Auto) 0.0, Sodium 136, Potassium 4.1, Chloride 104, Carbon Dioxide 30, Anion Gap 6.1, BUN 15, Creatinine 0.90, Estimated Creat Clear 71, Estimated GFR 83, Est GFR ( Amer) 100, Glucose 93 D, Calcium 8.8, Magnesium 2.4 H, Total Bilirubin 0.3, AST 36, ALT 19, Alkaline Phosphatase 150 H, Total Protein 6.4, Albumin 3.5, Globulin 2.9, Albumin/Globulin Ratio 1.2, Procalcitonin 0.080 I & O for Labs for Last 24 Hours: Intake & Output 12/10/23 12/11/23 12/12/23 02/27/24 23:59 23:59 23:59 23:59 Intake Total 1144.779 / 1144.779 580.066 / 580.066 Output Total 1520 / 1520 600 / 600 Balance -375.221 / -375.221 -19.934 / -19.934 Weight 171 lb 9 oz 165 lb 11.2 oz Constitutional: Present moderate distress Comment:: Intubated and Sedated Head: Present normocephalic and atraumatic Neck: Present normal inspection and trachea midline Respiratory: Present patient mechanically ventilated and wheezes; Absent prolonged expiratory phase Cardiac: Present S1/S2 and Tachycardia GI: Present soft; Absent distention or tenderness Skin: Present intact; Absent cyanosis Neuro: Present awake; Absent alert or oriented x 3 Comment:: Intubated and sedated Extremities: Present normal inspection; Absent clubbing or cyanosis Psychiatric: Present unable to assess Assessment and Plan *Assessment and plan (1) On mechanically assisted ventilation: Status: Acute Category: Medical Code(s): Z99.11 - Dependence on respirator [ventilator] status (2) Lung mass: Status: Acute Category: Medical Code(s): R91.8 - Other nonspecific abnormal finding of lung field (3) Pulmonary emphysema: Status: Acute Category: Medical Code(s): J43.9 - Emphysema, unspecified (4) Dyspnea on exertion: Status: Acute Category: Medical Code(s): R06.09 - Other forms of dyspnea (5) Mediastinal lymphadenopathy: Status: Acute Category: Medical Code(s): R59.0 - Localized enlarged lymph nodes (6) Hilar lymphadenopathy: Status: Acute Category: Medical Code(s): R59.0 - Localized enlarged lymph nodes Plan Mr. Nolasco is a 73-year-old male greater than 30 PPD following in pulmonary for lung mass scheduled for an elective bronchoscopy transbronchial biopsy EBUS FNA experienced significant amount of hemoptysis, admitted to the hospital as it deemed necessary that the patient to be remain remained intubated mechanical ventilatory support to avoid any further dislodgment and concern for further hemoptysis. Currently minimal ventilator settings, PEEP of 5 volume of 420 rate of 18 and FiO2 of 35%. Interval update: No acute respiratory events overnight. Bronchoscopy this morning did not show any evidence of active hemoptysis. No blood was noted. The plan was made to wean sedation and extubate the patient. Chest x-ray this morning stable with no new pulmonary infiltrates. Plan: Wean sedation to facilitate SBT and extubation. Continue DuoNebs every 6 hours along with Pulmicort every 12 scheduled No need for antibiotics at this point of time Follow bronchoscopy culture results
--- NOTE | 2023-12-13 12:40 | PC.NURSE ---
placed pt on room air, pt's oxygen saturations 96-97% on 2LNC, pt's oxygen saturations on room air 93-94%
--- NOTE | 2023-12-13 13:15 | PC.NURSE ---
placed pt on room air, pt states doesn't wear oxygen at home , informed pt that as long as oxygen stays up will be discharged soon, pt has ride home with family via private vehicle
--- NOTE | 2023-12-13 15:15 | PC.NURSE ---
pt ambulated to bathroom, voided, and ambulated back to bed with STUART Calabrese
--- NOTE | 2023-12-13 15:27 | PC.NURSE ---
notified MD Navas that pt has slight temp of 100.4 and increased rate of breathing with shallow breaths, breathing treatment just given, oxygen saturations 87-88% room air, placed 2LNC back on pt and oxygen saturations 94-95% on 2LNC, and that pt very tired and needed to lay down for ease of breathing, stated that fever is likely due to bronch today and that pt can still go home today on oxygen but need to get oxygen ordered for pt, notified Rebeca with case management and Rebeca is working on getting home oxygen for pt, family at bedside, call light within reach
--- NOTE | 2023-12-13 15:38 | CARE MANAGER ---
Patient's O2 sat on room air 88% at rest. GALO Torres
--- NOTE | 2023-12-13 15:58 | EXP.EVENT.NO ---
Patient had fever of 100.4, pulmonary was informed by RN, pulmonary thinks it is due to Bronch, recommends discharge and follow up as OP, no need for Abx at dc per pulmonary
[2023-12-13] MEDS: ACETAMINOPHEN 500MG TAB 500 MG PO (16:08)
--- NOTE | 2023-12-13 16:10 | CARE MANAGER ---
Patient set up with [facility] for Oxygen needs. GALO Torres
--- NOTE | 2023-12-13 16:41 | EXP.DC.SUM ---
General Admission date:: 12/12/23 Discharge date: 12/13/23 HPI HPI HPI: Mr. Nolasco is a 73-year-old male with extensive smoking history, emphysema, recent diagnosis of lung mass who presented for elective bronchoscopy today with pulmonology. Patient was seen on October 17 in the ER with concern for pneumonia, imaging concerning for pneumonia and right hilar lung mass. Referred as outpatient to pulmonology and oncology. Has had worsening respiratory distress over the past 2 months with recent identification of lung mass. During bronchoscopy today, patient was taken for transbronchial biopsy, EBUS, FNA of suspected lung cancer. He experience significant hemoptysis during the procedure, numerous clots were evacuated from bronchus. Bleeding eventually stopped but it was deemed safest for patient stay intubated and admission was requested to monitor overnight with plan for repeat bronchoscopy in the morning. Medicine was contacted for admission. On evaluation, patient's family is at bedside. He is on minimal vent settings. Family at bedside provides history. Mild distress with sedation being adjusted. At baseline level of function prior to admission. Hospital Course Hospital Course Hospital Course: 73-year-old male with extensive smoking history. Recent diagnosis of suspected lung mass. Referred to oncology who subsequently referred patient to pulmonology for further workup. Patient taken for elective bronchoscopy today. Developed some hemoptysis during procedure. Discussed case with pulmonology, request admission for sedation and keeping patient ventilated. Will need repeat bronchoscopy in the morning to monitor for resolution of hemoptysis. Medicine agreed to admit for further management. Patient is safely extubated, he is currently on 2L NC, alert awake, holding conversations, he denied CP, N/V. Family at bedside, patient and family informed of fever episode per RN, patient was being discharged in stable condition. Pulmonary recommends discharge, no abx needed at discharge Exam Data for Last 24 hours Vital signs and Labs for Last 24 Hours: Temp Pulse Resp BP Pulse Ox O2 Del Method O2 Flow Rate 98.2 F 82 20 98/40 L 94 L Nasal Cannula 2 12/13/23 15:46 12/13/23 16:06 12/13/23 16:06 12/13/23 16:06 12/13/23 16:06 12/13/23 16:06 12/13/23 16:06 FiO2 30 12/13/23 10:00 Laboratory Results - last 24 hr 12/13/23 06:55: WBC 8.8, RBC 3.77 L, Hgb 10.7 L D, Hct 34.5 L, MCV 91.5, MCH 28.4, MCHC 31.1 L, RDW 17.1, Plt Count 459 H, MPV 8.0, Neut % (Auto) 80.4 H, Lymph % (Auto) 13.0, [place] % (Auto) 6.3, Eos % (Auto) 0.2, Baso % (Auto) 0.2, Neut # (Auto) 7.1, Lymph # (Auto) 1.1, [place] # (Auto) 0.6, Eos # (Auto) 0.0, Baso # (Auto) 0.0, Sodium 136, Potassium 4.1, Chloride 104, Carbon Dioxide 30, Anion Gap 6.1, BUN 15, Creatinine 0.90, Estimated Creat Clear 71, Estimated GFR 83, Est GFR ( Amer) 100, Glucose 93 D, Calcium 8.8, Magnesium 2.4 H, Total Bilirubin 0.3, AST 36, ALT 19, Alkaline Phosphatase 150 H, Total Protein 6.4, Albumin 3.5, Globulin 2.9, Albumin/Globulin Ratio 1.2, Procalcitonin 0.080 I & O for Last 24 hours: Intake & Output 12/10/23 12/11/23 12/12/23 12/13/23 23:59 23:59 23:59 23:59 Intake Total 1144.779 / 9714.716 8548.066 / 1210.066 Output Total 1520 / 1520 600 / 600 Balance -375.221 / -375.221 610.066 / 610.066 Weight 77.819 kg 75.16 kg Constitutional Constitutional: no acute distress *Routine HEENT Exam Head: Present normocephalic Eye: Present EOMI and PERRL ENT: Present mucous membranes moist *Routine Neck Exam Neck: Present supple; Absent lymphadenopathy *Routine Respiratory Exam Respiratory: Present CTA bilaterally *Routine Cardiovascular Exam Cardiovascular: Present RRR *Routine Abdominal Exam Abdominal: Present soft and normoactive bowel sounds; Absent tenderness *Routine Extremities Exam Extremities: Absent cyanosis, clubbing or edema *Routine Skin Exam Skin: Present warm; Absent rash *Routine Neurological Exam Neurological: Present alert and oriented X3 Results Data Completed and Pending Labs on day of discharge: Labs from last 24 hours 12/13/23 06:55 WBC 8.8 RBC 3.77 L Hgb 10.7 L D Hct 34.5 L MCV 91.5 MCH 28.4 MCHC 31.1 L RDW 17.1 Plt Count 459 H MPV 8.0 Neut % (Auto) 80.4 H Lymph % (Auto) 13.0 [place] % (Auto) 6.3 Eos % (Auto) 0.2 Baso % (Auto) 0.2 Neut # (Auto) 7.1 Lymph # (Auto) 1.1 [place] # (Auto) 0.6 Eos # (Auto) 0.0 Baso # (Auto) 0.0 Sodium 136 Potassium 4.1 Chloride 104 Carbon Dioxide 30 Anion Gap 6.1 BUN 15 Creatinine 0.90 Estimated Creat Clear 71 Estimated GFR 83 Est GFR ( Amer) 100 Glucose 93 D Calcium 8.8 Magnesium 2.4 H Total Bilirubin 0.3 AST 36 ALT 19 Alkaline Phosphatase 150 H Total Protein 6.4 Albumin 3.5 Globulin 2.9 Albumin/Globulin Ratio 1.2 Procalcitonin 0.080 DS: Diagnosis Discharge Diagnosis (1) On mechanically assisted ventilation: Status: Acute Code(s): Z99.11 - Dependence on respirator [ventilator] status (2) Lung mass: Status: Acute Code(s): R91.8 - Other nonspecific abnormal finding of lung field (3) Pulmonary emphysema: Status: Acute Code(s): J43.9 - Emphysema, unspecified (4) Dyspnea on exertion: Status: Acute Code(s): R06.09 - Other forms of dyspnea (5) Mediastinal lymphadenopathy: Status: Acute Code(s): R59.0 - Localized enlarged lymph nodes (6) Hilar lymphadenopathy: Status: Acute Code(s): R59.0 - Localized enlarged lymph nodes Meds Home Medications and Allergies Home Medications Medication Instructions Recorded Confirmed Type finasteride 5 mg tablet 5 mg PO DAILY 04/10/20 12/12/23 History rosuvastatin 10 mg tablet 10 mg PO 10 04/10/20 12/12/23 History sertraline 100 mg tablet 100 mg PO DAILY 04/10/20 12/12/23 History tamsulosin 0.4 mg capsule 0.4 mg PO DAILY 04/10/20 12/12/23 History budesonide 160 mcg-glycopyr 9 2 inh inhalation BID 90 days #10.7 12/06/23 12/12/23 Rx mcg-formot 4.8 mcg/actuation HFA grams inhaler (Breztri Aerosphere) ipratropium 0.5 mg-albuterol 3 mg 3 ml inhalation QID PRN shortness 12/06/23 12/12/23 Rx (2.5 mg base)/3 mL nebulization of breath or wheezing 90 days #90 soln mL hydrocodone 5 mg-acetaminophen 325 1 - 2 tab PO Q8 PRN Pain 12/13/23 12/13/23 History mg tablet New Prescriptions to Start Prescriptions: Allergies Allergy/AdvReac Type Severity Reaction Status Date / Time hydrocodone Allergy Intermediate Unknown Verified 12/13/23 09:07 allergy reaction oxycodone Allergy Intermediate Unknown Verified 12/13/23 09:07 allergy reaction Discharge Plan Disposition Patient Disposition: Home, Self-Care Condition: Good Discharge Order Discharge Orders: Discharge Order (Routine); Ordered 12/13/23 Ordered By: Christopher Angela Follow up Plan Follow up with: Ruthy Navas MD [Physician] - 12/19/23 1:15 pm Prescriptions/Medication Reconciliation: Continued ipratropium-albuterol 0.5 mg-3 mg(2.5 mg base)/3 mL solution for nebulization 3 ml inhalation QID PRN (Reason: shortness of breath or wheezing) 90 Days Qty: 90 2RF Breztri Aerosphere 160-9-4.8 mcg/actuation HFA aerosol inhaler 2 inh inhalation BID 90 Days Qty: 10.7 3RF sertraline 100 MG tablet 100 mg PO DAILY tamsulosin 0.4 MG capsule 0.4 mg PO DAILY finasteride 5 MG tablet 5 mg PO DAILY rosuvastatin 10 MG tablet 10 mg PO 10 hydrocodone-acetaminophen 5-325 mg tablet 1 - 2 tab PO Q8 PRN (Reason: Pain) Patient Comments: TAKE 1 TO 2 TABLETS BY MOUTH EVERY 8 HOURS NEEDED FOR PAIN Other Ambulatory Orders: Home Medical Equipment (Routine) Location: None Selected Ordered By: Christopher Angela Problem Reconciliation Problems Reviewed?: Yes Patient Discharge Instructions ACTIVITY: Ambulate as tolerated DIET: advance to your usual diet Patient Instructions: DI for Bronchoscopy, Diagnostic, Ventilator-Associated Pneumonia, DI for Hemoptysis, Catheter-Associated Urinary Tract Infection Providers Primary Care Provider: Vicente Mas Admit Provider: Remberto Rowe Attending Provider: Remberto Rowe
--- NOTE | 2023-12-13 17:50 | PC.NURSE ---
removed bilateral IV's on pt, oxygen tank obtained from [facility], pt on 2LNC, went over discharge paperwork with pt and family at bedside, pt being wheeled out to private vehicle via Julita Hendrix
--- NOTE | 2023-12-14 14:13 | CARE MANAGER ---
Spoke with patient's and daughter. They state the patient is not doing well. He is still on his Oxygen, but is in a lot of pain. He has pain med but it is not working. They have contacted pulmonology and PCP. She states she is not sure they would be able to get him to doctor's office due to his weakness. Recommended ambulance to bring him to ER, but daughter states the patient is refusing to go. Encouraged her to call back if there was anything we could do and again to follow up with ER or MD to help with pain. GALO Torres
== END 2023-12-13 17:51 | disposition home or self-care (01) | DRG 167 ==
LOC: 2ND 13:33
PROVIDERS: Internal Medicine; Internal Medicine Pulmonary Disease; Admitting Provider Internal Medicine Adolescent Medicine; PCP Internal Medicine; Visit Provider Internal Medicine Adolescent Medicine
PROC: 0BBC8ZX Excision of Right Upper Lung Lobe, Via Natural or Artificial Opening Endoscopic, Diagnostic (ICD-10-PCS; principal; 2023-12-12 11:00)
DX: C34.11 Malignant neoplasm of upper lobe, right bronchus or lung (principal); C77.1 Secondary and unspecified malignant neoplasm of intrathoracic lymph nodes; R04.2 Hemoptysis; J43.9 Emphysema, unspecified; E78.5 Hyperlipidemia, unspecified; R59.0 Localized enlarged lymph nodes; F17.210 Nicotine dependence, cigarettes, uncomplicated
CPT/HCPCS: 31500; 94002; 31628; 36415; 71045; 76000; 80048; 80053; 82803; 83735; 84145; 85025; 88112; 88173; 88305; 88341; 88342; 88360; 94003; 94640; J3490; J2405; J2704